=== PATIENT | female | born 1955 ===

== ENCOUNTER 2017-03-22 17:15 | Emergency (ER) | payer MEDICAID ==
[2017-03-22 17:16] VITALS: BMI 24.7
[2017-03-22 17:20] VITALS: O2SAT 99
--- NOTE | 2017-03-22 18:12 | ED PDOC ---
Upper Extremity Pain/Injury Time Seen by Provider: 03/22/17 17:20 Chief Complaint (Nursing): Upper Extremity Problem/Injury Chief Complaint (Provider): Upper extremity injury History Per: Patient History/Exam Limitations: no limitations Onset/Duration Of Symptoms: Hrs (patient fell earlier today, a few hours prior to arrival) Current Symptoms Are (Timing): Still Present Severity: Moderate Additional Complaint(s): 61 year old female with a pertinent medical history of asthma, insomnia, hypercholesterolemia, anxiety, and chronic back pain presents to the ED with complaints of right shoulder and right elbow pain status post fall that occurred earlier today (a few hours prior to arrival). She states that she was mopping the floor in her home and she slipped and fell. She denies having any other medical complaints or injuries at this time. PMD: Lexus Vang MD Past Medical History Reviewed: Historical Data, Nursing Documentation, Vital Signs Vital Signs: Last Vital Signs Temp 98.1 F 03/22/17 17:18 Pulse 105 H 03/22/17 17:18 Resp 18 03/22/17 17:18 BP 114/79 03/22/17 17:18 Pulse Ox 99 03/22/17 17:18 - Medical History PMH: Anxiety, Arthritis, Asthma, Back Problems, Bronchitis, COPD, Depression, Hypercholesterolemia, Hyperlipidemia, Migraine Denies: CHF, HIV, HTN, Hypothyroidism, Osteoporosis, Chronic Kidney Disease, Rheumatoid Arthritis - Surgical History Surgical History: Cholecystectomy - Family History Family History: States: Unknown Family Hx - Social History Current smoker - smoking cessation education provided: No Alcohol: None Drugs: Denies - Home Medications Home Medications: Ambulatory Orders Medication Instructions Recorded Albuterol 0.083% [Albuterol 0.083% 3 ml IH Q4H PRN 09/24/16 Inhal Jina (2.5 mg/3 ml) UD] Albuterol HFA [Ventolin HFA 90 1 puff IH Q6H PRN 09/24/16 mcg/actuation (8 g)] Alprazolam [Xanax] 2 mg PO HS 09/24/16 Desvenlafaxine Succinate [Pristiq] 100 mg PO HS 09/24/16 Diclofenac Sodium [Voltaren] 1 appl TOP BID PRN 09/24/16 Ergocalciferol (Vitamin D2) 50,000 unit PO QWK 09/24/16 [Vitamin D2] Folic Acid/Multivit-Min/Lutein 1 tab PO DAILY 09/24/16 [Multi-Vitamin Gummies] Gabapentin [Neurontin] 800 mg PO Q8H 09/24/16 Meclizine [Meclizine*] 25 mg PO Q8H PRN 09/24/16 Meloxicam [Mobic] 7.5 mg PO DAILY 09/24/16 Mirtazapine [Remeron] 45 mg PO HS 09/24/16 Montelukast [Singulair] 10 mg PO DAILY 09/24/16 Ranitidine HCl [Zantac] 150 mg PO DAILY 09/24/16 Simvastatin [Zocor] 40 mg PO HS 09/24/16 Zolpidem [Ambien] 10 mg PO HS 09/24/16 oxyCODONE [oxyCODONE Immediate 15 mg PO Q4H PRN 09/24/16 Release Tab] Albuterol/Ipratropium [Duoneb 3 3 ml INH RQ6 #10 neb 09/30/16 mg/0.5 mg (3 ml) UD] Azithromycin [Zithromax] 500 mg IV DAILY #5 vial 09/30/16 Fluticasone/Salmeterol 250/50 1 puff IH Q12 #1 puff 09/30/16 [Advair Diskus 250/50] methylPREDNISolone [Solu-Medrol] 40 mg IV Q8 #10 ml 09/30/16 Naproxen [Naprosyn Tab] 375 mg PO Q8 PRN #15 tab 03/22/17 - Allergies Allergies/Adverse Reactions: Allergies Allergy/AdvReac Type Severity Reaction Status Date / Time theophylline Allergy RASH Verified 05/17/16 18:51 peanut butter Allergy RASH Uncoded 10/01/16 10:12 Review of Systems Musculoskeletal: Positive for: Shoulder Pain (right shoulder), Arm Pain (right upper arm pain) Physical Exam - Reviewed Nursing Documentation Reviewed: Yes Vital Signs Reviewed: Yes - Physical Exam Appears: Positive for: Well, Non-toxic, No Acute Distress Head Exam: Positive for: ATRAUMATIC, NORMOCEPHALIC Skin: Positive for: Normal Color, Warm, Dry Cardiovascular/Chest: Positive for: Regular Rate, Rhythm Respiratory: Positive for: Normal Breath Sounds. Negative for: Respiratory Distress Extremity: Positive for: Tenderness (left arm: AC joint tenderness. slip scapular tenderness. tenderness along elbow near olecranon. able to flex and extend. no ecchymosis noted on arm.). Negative for: Normal ROM (limited range of motion in right shoulder due to pain. ), Swelling Neurologic/Psych: Positive for: Alert, Oriented (3x) - ECG O2 Sat by Pulse Oximetry: 99 (RA) Pulse Ox Interpretation: Normal - Progress ED Course And Treament: shoulder xry: no acute fx elbow xry: no acute fx Placed in shoulder sling. toradol 30 mg IM x 1 dose Medical Decision Making Medical Decision Makin:20 Initial impression: 61 year old female with right shoulder and right upper arm pain status post fall. Initial plan: * XRay shoulder right 3 views * XRay elbow right 3 views * reevaluation Scribe Attestation: Documented by Anna Colbert, acting as a scribe for Maxx Roth PA-C. Provider Scribe Attestation: All medical record entries made by the Scribe were at my direction and personally dictated by me. I have reviewed the chart and agree that the record accurately reflects my personal performance of the history, physical exam, medical decision making, and the department course for this patient. I have also personally directed, reviewed, and agree with the discharge instructions and disposition. Disposition - Clinical Impression Clinical Impression: Shoulder injury - Disposition Referrals: Luiz Oneil III, MD [Staff Provider] - Disposition: Routine/Home Disposition Time: 18:50 Condition: FAIR Prescriptions: Naproxen [Naprosyn Tab] 375 mg PO Q8 PRN #15 tab PRN Reason: Pain, Moderate (4-7) Instructions: Shoulder Sprain (ED)
[2017-03-22 19:45] VITALS: BP 130/73; PULSE 82; RESP 15; TEMP 98
--- NOTE | 2017-03-23 10:56 | RAD ---
PROCEDURE: Radiographs of the right elbow. HISTORY: elbow injury COMPARISON: No prior. FINDINGS: BONES: Normal. No fracture. JOINTS: Normal. No osteoarthritis. SOFT TISSUES: Normal. JOINT EFFUSION: None. OTHER FINDINGS: None. IMPRESSION: Unremarkable radiographs of the right elbow.
--- NOTE | 2017-03-23 10:56 | RAD ---
PROCEDURE: Radiographs of the Right Shoulder HISTORY: shoulder injury COMPARISON: No prior. FINDINGS: BONES: No acute fracture. JOINTS: Preserved glenohumeral relationship, acromioclavicular degenerative change: Mild. SOFT TISSUES: Normal. OTHER FINDINGS: None. IMPRESSION: No acute findings related to/accounting for the clinical presentation.
== END 2017-03-22 19:45 | disposition home or self-care (01) ==
LOC: H.ER 17:15
DX: S49.91XA Unspecified injury of right shoulder and upper arm, initial encounter (principal); W19.XXXA Unspecified fall, initial encounter; Y92.000 Kitchen of unspecified non-institutional (private) residence as the place of occurrence of the external cause; E78.00 Pure hypercholesterolemia, unspecified; F41.9 Anxiety disorder, unspecified; J44.9 Chronic obstructive pulmonary disease, unspecified

== ENCOUNTER 2017-03-25 09:03 | Day surgery (SDC) | payer MEDICAID ==
[2017-03-25 09:28] VITALS: BMI 21.9
[2017-03-25] MEDS ORDERED: Lactated Ringer's 1,000 ML IV ONE ×2 (10:05→11:01)
[2017-03-25] MEDS ORDERED: methylPREDNISolone Depo 80 mg/ml Inj ONE (10:19)
[2017-03-25] MEDS ORDERED: Bupivacaine HCl 0.25% PF (30 ml) Inj ONE ×2 (10:19→10:23)
[2017-03-25] MEDS ORDERED: MethylPREDNISolone Depo 40 mg/ml Inj ONE (10:19)
[2017-03-25] MEDS ORDERED: Lidocaine 1% Inj (20ml) ONE (10:20)
[2017-03-25] MEDS ORDERED: Iohexol 300 100 ML IJ ONE (10:20)
[2017-03-25] MEDS ORDERED: Propofol 10 mg/ml Inj (20 ML) ONE (10:34)
[2017-03-25] MEDS ORDERED: Lidocaine 1% Inj (20ml) IM ONE (10:45)
[2017-03-25] MEDS ORDERED: Bupivacaine 0.25% Inj(30mL) IJ ONE (10:46)
[2017-03-25] MEDS ORDERED: methylPREDNISolone Depo 80 mg/ml Inj IM ONE (10:52)
[2017-03-25] MEDS ORDERED: MethylPREDNISolone Depo 40 mg/ml Inj IM ONE (10:54)
[2017-03-25] MEDS ORDERED: HYDROmorphone 0.5 mg/0.5 ml ISec ONE (11:15)
[2017-03-25] MEDS: HYDROmorphone 0.5 mg/0.5 ml ISec IVP PRN ×2 (11:15→11:23)
[2017-03-25 12:49] VITALS: BP 132/79; PULSE 100; RESP 20; TEMP 98
[2017-03-25 12:51] VITALS: O2SAT 99
--- NOTE | 2017-03-25 13:16 | PCM.OP ---
Operative Report - Operative Report Date of Surgery/Procedure: 03/25/17 Time of Surgery/Procedure: 10:45 Surgeon: Deshawn Anesthesia/Sedation: Monitored anesthesia care Pre-Operative Diagnosis: Lumbar spondylosis and left greater trochanteric bursitis Post-Operative Diagnosis: Same Indication for Surgery: Intractable pain Operative Findings: After discussion of the procedure with the patient including his wrist is alternative completed on possibility of an L5 increased pain patient consented to the procedure. She denies any recent infections bleeding tendencies or being on anticoagulants physician was then made to proceed to the OR. Patient was placed somewhat fluoroscopy table in the prone position. With 2 pillows underneath her abdomen. The back was prepped and draped in the usual sterile fashion and sterile technique was adhered to drainage procedure. The L4 and L5 vertebral levels were first identified in the anteroposterior view. CSF or angle on the fluoroscopy was used to open up the intralaminar space at this level. The skin overlying this area was infiltrated with 1% lidocaine using 25-gauge needle. Subsequently a 20-gauge 3-1/2 inch Tuohy needle was incrementally advanced under fluoroscopic guidance until the associated resistance and was rechecked approximately the 7 cm depth. This was guided under lateral fluoroscopy fluoroscopy view. After epidural space was reached this was confirmed by injecting approximately 1 mL of Isovue contrast approximately 4 mL of 1% Marcaine and Depo-Medrol mixture was injected. The needle was then removed. Then the left greater trochanter and trochanter was visualized on the fluoroscopy using the anteroposterior view. This point was also palpated on the skin at this area was infiltrated with 1% lidocaine using 25-gauge needle. Subsequently a 22-gauge 3-1/2 inch spinal needle was incrementally advanced under fluoroscopic guidance until tip of the needle was visualized to contact the greater trochanter at this level. After appropriate placement approximately 6 mL of a quarter percent Marcaine and Depo-Medrol measure was injected. The needle was then removed patient's back and left leg wasn't clean and dry bandages were applied. Pressures and transferred to recovery area in good condition is without any signs of EMPLOYEE TRAINING SPECIALIST toxicity any neurological deficit. Shortly following office in approximately 4 weeks. End of dictation Procedure/Operation Description: L4-5 interlaminar epidural steroid injection. Left greater tronchanteric bursa injection under fluoroscopy Estimated Blood Loss: None. Complications: None. Discharge & Condition: Stable to home.
== END 2017-03-25 13:30 | disposition home or self-care (01) ==
LOC: H.OPSURG 09:03
PROVIDERS: ATTEND Anesthesiology
DX: M47.816 Spondylosis without myelopathy or radiculopathy, lumbar region (principal); J45.909 Unspecified asthma, uncomplicated; Z88.8 Allergy status to other drugs, medicaments and biological substances; M71.58 Other bursitis, not elsewhere classified, other site

== ENCOUNTER 2018-03-09 14:32 | Emergency (ER) | payer MEDICAID ==
[2018-03-09 14:33] VITALS: BMI 21.7
[2018-03-09 14:53] VITALS: O2SAT 100
[2018-03-09] MEDS ORDERED: Albuterol-Ipratrop 3 mg / 0.5 (3 ml) UD INH STA (15:45)
[2018-03-09] MEDS ORDERED: Sodium Chloride 0.9% 1,000 ML IV STA (15:45)
[2018-03-09] MEDS ORDERED: Albuterol-Ipratrop 3 mg / 0.5 (3 ml) UD ONE (15:53)
[2018-03-09] MEDS: Albuterol-Ipratrop 3 mg / 0.5 (3 ml) UD IH STA (15:58)
--- NOTE | 2018-03-09 16:23 | ED PDOC ---
HPI: SOB/CHF/COPD Chief Complaint (Provider): SOB/Cough/Dizziness History Per: Patient History/Exam Limitations: no limitations Current Symptoms Are (Timing): Still Present <Anna Mercado - Last Filed: 03/09/18 18:18> <Juan Salazar - Last Filed: 03/09/18 22:40> Chief Complaint (Nursing): Dizziness/Lightheaded Additional Complaint(s): 62 y/o female with MHx of Asthma, COPD, Pulmonary fibrosis, Hypercholesterolemia , Vertigo, chronic headaches presents to Ed complaining of SOB, intermittent wheezing, non productive cough, chest tightness sensation since yesterday, and has not been getting better after using her Home albuterol. Reports nasal congestion since last week. Denies fevers, chills, abd pain, diarrheas. Also complaining of bilateral headaches, and dizziness episode since yesterday, states it feels like an episode of her chronic headaches, and vertigo, and this is not the worst headache of her life. Denies tingling, numbness, or weakness. (Anna Mercado) Supervising Attending Note <Anna Mercado - Last Filed: 03/09/18 18:18> - Supervising Attending Note The Documented history was done by the: Physician Broadcast Producer The documented physical exam was done by the: Physician Broadcast Producer The documented procedures were done by the: Physician Broadcast Producer - Attestation: I have personally seen and examined this patient.: Yes I have fully participated in the care of the patient.: Yes I have reviewed all pertinent clinical information, including history, physical exam and plan: Yes <Juan Salazra - Last Filed: 03/09/18 22:40> - Notes: Notes:: cough, wheezes. headache and room spinning like her usual vertigo. not worst pain in her life. mild ache. (Juan Salazar) Past Medical History - Medical History PMH: Anxiety, Arthritis (Back pain), Asthma, Back Problems, Bronchitis, COPD, Depression, Hypercholesterolemia, Hyperlipidemia, Migraine Denies: CHF, HIV, HTN, Hypothyroidism, Osteoporosis, Chronic Kidney Disease, Rheumatoid Arthritis - Surgical History Surgical History: Cholecystectomy - Family History Family History: States: Unknown Family Hx, CAD - Social History Current smoker - smoking cessation education provided: No Ex-Smoker (has not smoked in the last 12 months): No Alcohol: None Drugs: Denies <Anna Mercado - Last Filed: 03/09/18 18:18> <Juan Salazar - Last Filed: 03/09/18 22:40> Vital Signs: Last Vital Signs Temp 98.2 F 03/09/18 18:23 Pulse 80 03/09/18 18:23 Resp 18 03/09/18 18:23 BP 132/56 L 03/09/18 18:23 Pulse Ox 100 03/09/18 18:23 - Home Medications Home Medications: Ambulatory Orders Medication Instructions Recorded Albuterol 0.083% [Albuterol 0.083% 3 ml IH Q4H PRN 09/24/16 Inhal Jina (2.5 mg/3 ml) UD] Albuterol HFA [Ventolin HFA 90 1 puff IH Q6H PRN 09/24/16 mcg/actuation (8 g)] Alprazolam [Xanax] 2 mg PO HS 09/24/16 Desvenlafaxine Succinate [Pristiq] 100 mg PO HS 09/24/16 Diclofenac Sodium [Voltaren] 1 appl TOP BID PRN 09/24/16 Ergocalciferol (Vitamin D2) 50,000 unit PO QWK 09/24/16 [Vitamin D2] Folic Acid/Multivit-Min/Lutein 1 tab PO DAILY 09/24/16 [Multi-Vitamin Gummies] Gabapentin [Neurontin] 800 mg PO Q8H 09/24/16 Meclizine [Meclizine*] 25 mg PO Q8H PRN 09/24/16 Mirtazapine [Remeron] 45 mg PO HS 09/24/16 Montelukast [Singulair] 10 mg PO DAILY 09/24/16 Ranitidine HCl [Zantac] 150 mg PO DAILY 09/24/16 Simvastatin [Zocor] 40 mg PO HS 09/24/16 Zolpidem [Ambien] 10 mg PO HS 09/24/16 oxyCODONE [oxyCODONE Immediate 15 mg PO Q4H PRN 09/24/16 Release Tab] Albuterol/Ipratropium [Duoneb 3 3 ml INH RQ6 #10 neb 09/30/16 mg/0.5 mg (3 ml) UD] Fluticasone/Salmeterol 250/50 1 puff IH Q12 #1 puff 09/30/16 [Advair Diskus 250/50] Naproxen [Naprosyn Tab] 375 mg PO Q8 PRN #15 tab 03/22/17 Albuterol Sulfate [Proair Hfa] 0.09 mg IH Q6H PRN #2 inh 03/09/18 Benzonatate [Tessalon Perles] 100 mg PO BID PRN 5 Days sgl 03/09/18 Ibuprofen [Motrin] 600 mg PO TID 7 Days tab 03/09/18 predniSONE [predniSONE Tab] 20 mg PO BID 5 Days tab 03/09/18 - Allergies Allergies/Adverse Reactions: Allergies Allergy/AdvReac Type Severity Reaction Status Date / Time theophylline Allergy RASH Verified 03/09/18 14:51 peanut butter Allergy RASH Uncoded 03/09/18 14:51 Curb-65 Severity Score - CURB-65 Severity Score Confusion: No Bun >19mg/dl (>7mmol/L): No Respiratory Rate greater than/equal to 30: No Systolic BP <90 or Diastolic BP less than/equal 60mmHg: No Age >64: No Curb-65 Score: 0 Percentage 30-day mortality: 0.6% <Anna Mercado - Last Filed: 03/09/18 18:18> Wells Criteria for PE - Wells Criteria for Pulmonary Embolism Clinical Signs and Symptoms of DVT: No P.E is #1 Diagnosis, or Equally Likely: No Heart Rate >100: No Immobilization at least 3 days;Surgery previous 4 weeks: No Previous, objectively diagnosed PE or DVT: No Hemoptysis: No Malignancy w/treatment within 6 months, or palliative: No Total Score: 0 <Anna Mercado - Last Filed: 03/09/18 18:18> Review of Systems ROS Statement: Except As Marked, All Systems Reviewed And Found Negative (as per HPI) <Anna Mercado - Last Filed: 03/09/18 18:18> Physical Exam - Reviewed Nursing Documentation Reviewed: Yes Vital Signs Reviewed: Yes - Physical Exam Appears: Positive for: Non-toxic, No Acute Distress Skin: Positive for: Normal Color, Warm, Dry. Negative for: Diaphoresis, Pallor , Rash, Jaundice, Mottled, Cyanosis Eye Exam: Positive for: Normal appearance ENT: Positive for: Normal ENT Inspection, Nasal Congestion. Negative for: Sinus Pain/Drainage, Pharyngeal Erythema, Tonsillar Exudate Neck: Positive for: Normal, Supple Cardiovascular/Chest: Positive for: Regular Rate, Rhythm. Negative for: Chest Non Tender, Edema, Gallop, Bradycardia, Tachycardia Respiratory: Positive for: Decreased Breath Sounds. Negative for: Accessory Muscle Use, Crackles, Rales, Rhonchi, Wheezing, Respiratory Distress Gastrointestinal/Abdominal: Positive for: Bowel Sounds (present ), Soft. Negative for: Tenderness, Distended, Guarding, Rebound Back: Positive for: Normal Inspection. Negative for: L CVA Tenderness, R CVA Tenderness Extremity: Positive for: Capillary Refill (<2). Negative for: Pedal Edema, Calf Tenderness Neurologic/Psych: Positive for: Alert, gas appliance adjuster II-XII (preserved, and grossly normal ), Oriented (x 3), Gait (normal). Negative for: Motor/Sensory Deficits, Aphasia , Facial Droop <Anna Mercado - Last Filed: 03/09/18 18:18> - Physical Exam Neck: Positive for: Normal, Supple Cardiovascular/Chest: Positive for: Regular Rate, Rhythm Respiratory: Positive for: Decreased Breath Sounds Neurologic/Psych: Positive for: Alert, gas appliance adjuster II-XII, Oriented <Juan Salazar M - Last Filed: 03/09/18 22:40> - Laboratory Results Result Diagrams: 03/09/18 16:39 03/09/18 16:39 - ECG O2 Sat by Pulse Oximetry: 100 <Anna Mercado - Last Filed: 03/09/18 18:18> - Laboratory Results Result Diagrams: 03/09/18 16:39 03/09/18 16:39 <Juan Saalzar - Last Filed: 03/09/18 22:40> Medical Decision Making <Anna Mercado - Last Filed: 03/09/18 18:18> <Juan Salazar - Last Filed: 03/09/18 22:40> Medical Decision Making: Short of Breath -asthma vs COPD exacerbation -Duoneb x 2 -Solumedrol 125 mg IV once -peak flow pre and post treatment -check CBC, BMP, pro-BNP, toponin I -re-evaluation Headaches -Reglan 10 mg IV once Vertigo -Orthosthatic BP negative -no neurological defects in physical exam -Meclizine 25 mg PO once Case discussed with Dr. Salazar Re-evaluation -Patient feels better, her headaches improved significantly after reglan, denies dizziness at this eval. Improved respiratory symptoms. -labs: CBC : normal, CMP:mild low K+, troponin I neg, pro-BNP normal -replaced potassium with Kdur 20 meq PO once -Stable for discharge home on Albuterol and Prednisone for Asthma exacerbation. Recommended f/u with PMD in 2-3 days. ER precautions given. ( Anna Mercado) 2239: Feels much better. AAOx3. Tolerated po. No wheezes or dizziness. Fu with pcp. (Juan Salazar) Disposition - Patient ED Disposition Is Patient to be Admitted: No Discussed With DrAissatou: Juan Salazar - Disposition Disposition: Routine/Home Disposition Time: 18:23 <Anna Mercado - Last Filed: 03/09/18 18:18> - Patient ED Disposition Is Patient to be Admitted: No <Juan Salazar - Last Filed: 03/09/18 22:40> - Clinical Impression Clinical Impression: Asthma exacerbation - Disposition Referrals: [facility] [place] [Outside] - 03/10/18 Condition: IMPROVED Additional Instructions: Return if not better in 3 days. Prescriptions: Albuterol Sulfate [Proair Hfa] 0.09 mg IH Q6H PRN #2 inh PRN Reason: Wheezing Benzonatate [Tessalon Perles] 100 mg PO BID PRN 5 Days sgl PRN Reason: Cough Ibuprofen [Motrin] 600 mg PO TID 7 Days tab predniSONE [predniSONE Tab] 20 mg PO BID 5 Days tab Instructions: Asthma, Adult (DC) Forms: [employer] ([place])
[2018-03-09 17:01] LABS: BASO # 0.1 K/uL (0.0-0.2); EOS # 0.4 K/uL (0.0-0.7); EOS % 5.1 % (0.0-4.0); HEMOGLOBIN 13.1 g/dL (12.0-16.0); LYMPH # 2.1 K/uL (1.0-4.3); LYMPH % 31.1 % (20.0-40.0); MEAN CELL VOLUME 90.4 fl (81.0-99.0); MEAN CORPUSCULAR HEMOGLOBIN 30.9 pg (27.0-31.0); MEAN CORPUSCULAR HGB CONC 34.2 g/dL (33.0-37.0); MEAN PLATELET VOLUME 9.6 fl (7.2-11.7); MONO # 0.4 K/uL (0.0-0.8); MONO % 5.6 % (0.0-10.0); NEUT # 3.9 K/uL (1.8-7.0); NEUT % 57.2 % (50.0-75.0); NRBC % 0.4 % (0.0-0.0); RBC 4.25 Mil/uL (3.80-5.20)
[2018-03-09 17:07] LABS: WHITE BLOOD COUNT 6.9 K/uL (4.8-10.8)
[2018-03-09 17:26] LABS: ALB/GLOB RATIO 1.3 (1.0-2.1); ALBUMIN 3.9 g/dL (3.5-5.0); ALT/SGPT 22 U/L (9-52); AST/SGOT 22 U/L (14-36); BLOOD UREA NITROGEN 11 mg/dl (7-17); CALCIUM 8.9 mg/dL (8.4-10.2); GFR AFRICAN-AMERICAN > 60; GFR NON-AFRICAN AMERICAN 56
[2018-03-09] MEDS ORDERED: Potassium Chloride 20 mEq ER Tab PO STA (18:04)
[2018-03-09] MEDS ORDERED: Potassium Chloride 20 mEq ER Tab PO ONE (18:10)
[2018-03-09 18:26] VITALS: BP 132/56; PULSE 80; RESP 18; TEMP 98.2
--- NOTE | 2018-03-10 09:34 | CARD ---
APPROVED REPORT EKG Measurement Heart [id number] <Conclusion> Normal sinus rhythm Normal ECG
== END 2018-03-09 18:28 | disposition home or self-care (01) ==
LOC: H.ER 14:32
DX: J45.901 Unspecified asthma with (acute) exacerbation (principal); R42 Dizziness and giddiness; E78.00 Pure hypercholesterolemia, unspecified; F32.9 Major depressive disorder, single episode, unspecified; F41.9 Anxiety disorder, unspecified; J84.10 Pulmonary fibrosis, unspecified; J44.9 Chronic obstructive pulmonary disease, unspecified
CPT/HCPCS: 80053; 83880; 84484; 85025; 93005; 94640; 96374; 99285; J2765; J2930; J7030

== ENCOUNTER 2018-04-01 12:06 | Emergency (ER) | payer MEDICAID ==
[2018-04-01 12:13] VITALS: BMI 21.0
[2018-04-01 12:14] VITALS: RESP 18; TEMP 98.4; O2SAT 99
--- NOTE | 2018-04-01 14:12 | ED PDOC ---
Syncope/Near Syncope/Dizziness Chief Complaint (Provider): Dizziness/lightheaded Onset/Duration Of Symptoms: Days (2) Current Symptoms Are (Timing): Still Present Number Of Syncopal Episodes: 2 Activity At Onset Of Symptoms: Standing, Walking Associated Symptoms Preceding Syncopal Episode: Lightheadedness, Vertigo Possible Causative Factor(s): Lightheaded W/Standing Fall Associated With With Symptoms: No Injury As Result Of Fall Severity: Moderate Pain Scale Rating Of: 8 Additional History Per: Patient Additional Complaint(s): PT is a 62 yo f with pmh of vertigo, asthma, COPD, Hyperlipidemia, arthritis, chronic back pain, present today due to dizziness and light headache. Pt state that she is feeling dizzy for the past 2 days, she feel like her head is spinning and it worsen when standing. Pt state that at first she thought its because she was tired, but today in morning she was reaching out to the fridge and she felt dizzy and fall, she denies having a head trauma, or any injury or LoC. PT state that she also have a SOB, and lightheaded with photophobia, its 8 out of 10, on frontal area, and feel like pressure, she tuck 2 Tylenol and it have helped but not resolved. Pt state that she is having tinnitus for the past 2 day on her left ear and some mild hearing deficit on L side . PT state that she was diagnosed with asymptomatic UTI last week and she does not remember the abx shes on. She had 3 episode of diarrhea 3 days ago but it resolved but still have mild abd pain on LLQ. Pt denies fever, N/V, change/blurry vision, worst headache of her life, loss of sensation, tingling, extremity weakness, chest pain, constipation, polyuria, dysuria or any other symptoms. PCP: PMH : as Mentioned above, and sciatica on left Medication: Fluticasone-salmeterol INH , Benadryl, Oxycodon 30mg, Meclizine Surgery: Cholecystectomy Social: never smoked, dont drink, and no drugs Last colonscopy 5 years ago , no abnormalities as per pt <Jasbir Faulkner - Last Filed: 04/01/18 18:40> <Gabriel Pino - Last Filed: 04/05/18 18:11> Time Seen by Provider: 04/01/18 12:50 Chief Complaint (Nursing): Dizziness/Lightheaded Supervising Attending Note - Supervising Attending Note The Documented history was done by the: Physician Pattern Marking Supervisor The documented physical exam was done by the: Physician Pattern Marking Supervisor The documented procedures were done by the: Physician Pattern Marking Supervisor - Attestation: I have personally seen and examined this patient.: Yes I have fully participated in the care of the patient.: Yes <Gabriel Pino Y - Last Filed: 04/05/18 18:11> Past Medical History Vital Signs: Last Vital Signs Temp 98.4 F 04/01/18 12:35 Pulse 82 04/01/18 12:35 Resp 18 04/01/18 12:35 BP 109/62 04/01/18 12:35 Pulse Ox 99 04/01/18 12:35 - Medical History PMH: Anxiety, Arthritis (Back pain), Asthma, Back Problems, Bronchitis, COPD, Depression, Hypercholesterolemia, Hyperlipidemia, Migraine Denies: CHF, HIV, HTN, Hypothyroidism, Osteoporosis, Chronic Kidney Disease, Rheumatoid Arthritis - Surgical History Surgical History: Cholecystectomy - Family History Family History: States: Unknown Family Hx, CAD - Social History Current smoker - smoking cessation education provided: No Ex-Smoker (has not smoked in the last 12 months): No Alcohol: None Drugs: Denies <Jasbir Faulkner - Last Filed: 04/01/18 18:40> Vital Signs: Last Vital Signs Temp 98.4 F 04/01/18 12:35 Pulse 82 04/01/18 12:35 Resp 18 04/01/18 12:35 BP 109/62 04/01/18 12:35 Pulse Ox 99 04/01/18 15:44 <Gabriel Pino Y - Last Filed: 04/05/18 18:11> - Home Medications Home Medications: Ambulatory Orders Medication Instructions Recorded Albuterol 0.083% [Albuterol 0.083% 3 ml IH Q4H PRN 09/24/16 Inhal Jina (2.5 mg/3 ml) UD] Albuterol HFA [Ventolin HFA 90 1 puff IH Q6H PRN 09/24/16 mcg/actuation (8 g)] Alprazolam [Xanax] 2 mg PO HS 09/24/16 Desvenlafaxine Succinate [Pristiq] 100 mg PO HS 09/24/16 Diclofenac Sodium [Voltaren] 1 appl TOP BID PRN 09/24/16 Ergocalciferol (Vitamin D2) 50,000 unit PO QWK 09/24/16 [Vitamin D2] Folic Acid/Multivit-Min/Lutein 1 tab PO DAILY 09/24/16 [Multi-Vitamin Gummies] Gabapentin [Neurontin] 800 mg PO Q8H 09/24/16 Meclizine [Meclizine*] 25 mg PO Q8H PRN 09/24/16 Mirtazapine [Remeron] 45 mg PO HS 09/24/16 Montelukast [Singulair] 10 mg PO DAILY 09/24/16 Ranitidine HCl [Zantac] 150 mg PO DAILY 09/24/16 Simvastatin [Zocor] 40 mg PO HS 09/24/16 Zolpidem [Ambien] 10 mg PO HS 09/24/16 oxyCODONE [oxyCODONE Immediate 15 mg PO Q4H PRN 09/24/16 Release Tab] Albuterol/Ipratropium [Duoneb 3 3 ml INH RQ6 #10 neb 09/30/16 mg/0.5 mg (3 ml) UD] Fluticasone/Salmeterol 250/50 1 puff IH Q12 #1 puff 09/30/16 [Advair Diskus 250/50] Naproxen [Naprosyn Tab] 375 mg PO Q8 PRN #15 tab 03/22/17 Albuterol Sulfate [Proair Hfa] 0.09 mg IH Q6H PRN #2 inh 03/09/18 Benzonatate [Tessalon Perles] 100 mg PO BID PRN 5 Days sgl 03/09/18 Ibuprofen [Motrin] 600 mg PO TID 7 Days tab 03/09/18 predniSONE [predniSONE Tab] 20 mg PO BID 5 Days tab 03/09/18 - Allergies Allergies/Adverse Reactions: Allergies Allergy/AdvReac Type Severity Reaction Status Date / Time theophylline Allergy RASH Verified 03/09/18 14:51 peanut butter Allergy RASH Uncoded 03/09/18 14:51 Review of Systems ROS Statement: Except As Marked, All Systems Reviewed And Found Negative Constitutional: Negative for: Fever Eyes: Negative for: Pain, Vision Change ENT: Positive for: Ear Pain (left ). Negative for: Ear Discharge, Nose Pain, Nose Congestion Cardiovascular: Positive for: Light Headedness. Negative for: Chest Pain, Palpitations Respiratory: Positive for: Shortness of Breath. Negative for: Cough, Wheezing Gastrointestinal: Positive for: Abdominal Pain (LLQ), Diarrhea (3 days ago, not active at moment). Negative for: Nausea, Vomiting Musculoskeletal: Positive for: Back Pain (chronic ) Skin: Negative for: Rash, Bruising Neurological: Positive for: Headache, Dizziness. Negative for: Weakness, Numbness, Confusion, Seizures, Altered Mental Status <Jasbir Faulkner - Last Filed: 04/01/18 18:40> Physical Exam - Reviewed Nursing Documentation Reviewed: Yes Vital Signs Reviewed: Yes - Physical Exam Appears: Positive for: Well, No Acute Distress Head Exam: Positive for: ATRAUMATIC, NORMAL INSPECTION, NORMOCEPHALIC Skin: Positive for: Warm, Dry Eye Exam: Positive for: Normal appearance, PERRL ENT: Positive for: Other (tenderness on L ear, wax obstruct the view of tympanic membrane B/L ) Neck: Positive for: Normal Cardiovascular/Chest: Positive for: Regular Rate, Rhythm. Negative for: Chest Non Tender, Edema Respiratory: Positive for: Normal Breath Sounds Gastrointestinal/Abdominal: Positive for: Bowel Sounds, Soft, Tenderness (LLQ). Negative for: Organomegaly, Distended, Guarding Back: Positive for: L CVA Tenderness. Negative for: R CVA Tenderness Extremity: Positive for: Normal ROM. Negative for: Calf Tenderness, Swelling Neurologic/Psych: Positive for: Alert, commercial drafter II-XII, Oriented, Mood/Affect <Jasbir Faulkner - Last Filed: 04/01/18 18:40> - Laboratory Results Result Diagrams: 04/01/18 14:55 04/01/18 14:55 - ECG O2 Sat by Pulse Oximetry: 99 <Ana Faulknersef - Last Filed: 04/01/18 18:40> - Laboratory Results Result Diagrams: 04/01/18 14:55 04/01/18 14:55 <Gabriel Pino - Last Filed: 04/05/18 18:11> Medical Decision Making Medical Decision Making: TIme 14:39 - Pt is a 62 yo female present today due to dizziness and lightheadedness, with 1 episode of a fall. -Pt is having LLQ pain and diarrhea x3 diagnosed with asymptomatic UTI on ABX On Physical exam LLQ tenderness and CVA Tenderness Plan Abdominal pelvis CT with contrast EKG Ct head w/o contrast Orthostatic BP CBC CMP Orthostatic pressure TIme 16:42 -Pt 62 with Dizziness and lightheadedness -Pt is 62 yo f with LLQ pain and diarrhea x3 diagnosed with asymptomatic UTI on ABx Vitals WNL Orthostatic Pressure: no extreme change in pressure or heart rate on exam ( orthostatic test Negative) Labs are normal Ct head : no acute finding Ct scan: no acute abdominal pelvic pathology nonspecific hypertrophy of dorsal pancreatic vessels as well as mesenteric vein EKG Regular rate and rhythm, No ST changes Pt is laying comfortable and with no acute distress, she tolerate food, she feels better On physical exam pt no focal finding, state she dont feel dizzy but when I put her to walk she was not stable Plan Will add Meclizine 25 mg monitor pt and recheck on her Time 18:32 Pt is a 62 yo female with PMH of vertigo present today due to dizziness and lightheadedness Orthostatic pressure Redone: no extreme change in pressure or HEart rate( orthostatic test negative) Pt recieved meclizine 25mg Pt feel better and comfortable to go home on Physical, Unstable gate is noticed but improved, pt state thats her baseline gate, she normally need to hold on things to be able to walk Plan Pt will be discharged home, advised to follow up with PCP as soon as possible Take Meclizine 25mg Return if any sever headache, worsening symptoms or symptoms persist more than 3 days Continue ABx for the UTI which was prescribed by PCP PT sent home with Information about their Dx <Jasbir Faulkner - Last Filed: 04/01/18 18:40> Medical Decision Making: Note: 62 year old female with a history of vertigo presents with dizziness. CT head is negative, nonfocal neuro exam. Pending CT abd & pelvis, if negative, patient will be cleared for discharge. Time: 18:05 --Patient has an unsteady gait. Time: 18:33 --Gait is stable after Meclizine, patient is medically cleared for discharge home. Scribe Attestation: Documented by Franca Gong, acting as a scribe for Gabriel Pino MD Provider Scribe Attestation: All medical record entries made by the Scribe were at my direction and personally dictated by me. I have reviewed the chart and agree that the record accurately reflects my personal performance of the history, physical exam, medical decision making, and the department course for this patient. I have also personally directed, reviewed, and agree with the discharge instructions and disposition. <Gabriel Pino Y - Last Filed: 04/05/18 18:11> Disposition - Disposition Disposition Time: 18:30 <Jasbir Faulkner - Last Filed: 04/01/18 18:40> <Gabriel Pino - Last Filed: 04/05/18 18:11> - Clinical Impression Clinical Impression: Dizziness - Disposition Condition: IMPROVED Additional Instructions: follow up with your primary doctor Dr Vang in 1-2 days return to the ED with any worsening or concerning symptoms Instructions: Vertigo (a Type of Dizziness) (DC) Forms: [employer] ([place]inian)
[2018-04-01] MEDS ORDERED: Iohexol 240 (50 ml) ONE (14:26)
[2018-04-01] MEDS ORDERED: Iohexol 240 (50 ml) PO ONE (14:30)
[2018-04-01 15:05] LABS: BASO # 0.1 K/uL (0.0-0.2); BASO % 1.2 % (0.0-2.0); EOS # 0.5 K/uL (0.0-0.7); EOS % 8.4 % (0.0-4.0); HEMOGLOBIN 12.5 g/dL (12.0-16.0); LYMPH # 1.7 K/uL (1.0-4.3); LYMPH % 29.6 % (20.0-40.0); MEAN CELL VOLUME 91.2 fl (81.0-99.0); MEAN CORPUSCULAR HEMOGLOBIN 31.5 pg (27.0-31.0); MEAN CORPUSCULAR HGB CONC 34.6 g/dL (33.0-37.0); MEAN PLATELET VOLUME 8.3 fl (7.2-11.7); MONO # 0.4 K/uL (0.0-0.8); MONO % 7.7 % (0.0-10.0); NEUT # 3.1 K/uL (1.8-7.0); NEUT % 53.1 % (50.0-75.0); NRBC % 0.1 % (0.0-0.0); RBC 3.97 Mil/uL (3.80-5.20); RED CELL DISTRIBUTION WIDTH 13.4 % (11.5-14.5); WHITE BLOOD COUNT 5.8 K/uL (4.8-10.8)
--- NOTE | 2018-04-01 15:10 | CT ---
Date of service: 04/01/2018 PROCEDURE: CT HEAD WITHOUT CONTRAST. HISTORY: dizziness COMPARISON: 06/06/2011. TECHNIQUE: Axial computed tomography images were obtained through the head/brain without intravenous contrast. Coronal and sagittal reconstructed images. Radiation dose: Total exam DLP = 775.33 mGy-cm. This CT exam was performed using one or more of the following dose reduction techniques: Automated exposure control, adjustment of the mA and/or kV according to patient size, and/or use of iterative reconstruction technique. FINDINGS: HEMORRHAGE: No intracranial hemorrhage. BRAIN: No mass effect or edema. No atrophy or chronic microvascular ischemic changes. VENTRICLES: Unremarkable. No hydrocephalus. CALVARIUM: Unremarkable. PARANASAL SINUSES: Unremarkable as visualized. No significant inflammatory changes. MASTOID AIR CELLS: Unremarkable as visualized. No inflammatory changes. OTHER FINDINGS: None. IMPRESSION: No acute intracranial abnormalities. No significant findings to account for the clinical presentation. No significant interval change compared to the prior examination(s).
[2018-04-01 15:39] LABS: BLOOD UREA NITROGEN 15 mg/dl (7-17); GFR AFRICAN-AMERICAN > 60; GFR NON-AFRICAN AMERICAN > 60
[2018-04-01 15:40] LABS: ALBUMIN 3.8 g/dL (3.5-5.0); CALCIUM 9.4 mg/dL (8.4-10.2)
[2018-04-01 15:41] LABS: ALB/GLOB RATIO 1.4 (1.0-2.1); ALT/SGPT 30 U/L (9-52); AST/SGOT 28 U/L (14-36)
[2018-04-01] MEDS ORDERED: Sodium Chloride 0.9% 1,000 ML IV STA (16:25)
[2018-04-01] MEDS ORDERED: Iohexol 300 100 ML IJ ONE (16:31)
[2018-04-01] MEDS ORDERED: Sodium Chloride 0.9% 100 ML ONE (16:31)
--- NOTE | 2018-04-01 17:34 | CT ---
Date of service: 04/01/2018 PROCEDURE: CT Abdomen and Pelvis with contrast HISTORY: abd pain diarrhea COMPARISON: None. TECHNIQUE: Contrast dose: 95 mL Omnipaque 300 Radiation dose: Total exam DLP = 216.4 mGy-cm. This CT exam was performed using one or more of the following dose reduction techniques: Automated exposure control, adjustment of the mA and/or kV according to patient size, and/or use of iterative reconstruction technique. FINDINGS: LOWER THORAX: Unremarkable. LIVER: Hepatic steatosis. No gross lesion or ductal dilatation. GALLBLADDER AND BILE DUCTS: Prior cholecystectomy with stable CBD dilatation. PANCREAS: Unremarkable. No gross lesion or ductal dilatation. SPLEEN: Unremarkable. ADRENALS: Unremarkable. No mass. KIDNEYS AND URETERS: Right pelvic kidney. No hydronephrosis. No solid mass. VASCULATURE: Hypertrophied dorsal pancreatic vessels. Hypertrophied mesenteric veins. No aortic aneurysm. BOWEL: Unremarkable. No obstruction. No gross mural thickening. APPENDIX: Normal appendix. PERITONEUM: Unremarkable. No free fluid. No free air. LYMPH NODES: Unremarkable. No enlarged lymph nodes. BLADDER: Unremarkable. REPRODUCTIVE: Left adnexal cyst measuring 2.0 x 1.4 cm. BONES: No acute fracture. Degenerative changes. OTHER FINDINGS: None. IMPRESSION: No acute abdominal pelvic pathology. Nonspecific hypertrophy of dorsal pancreatic vessels as well as mesenteric veins.
[2018-04-01 18:43] VITALS: BP 130/70; PULSE 71
--- NOTE | 2018-04-05 12:02 | CARD ---
APPROVED REPORT Date of service: 04/01/2018 EKG Measurement Heart [id number] <Conclusion> Normal sinus rhythm Normal ECG
== END 2018-04-01 18:50 | disposition home or self-care (01) ==
LOC: H.ER 12:06
DX: R42 Dizziness and giddiness (principal); R10.32 Left lower quadrant pain; M54.32 Sciatica, left side; E78.00 Pure hypercholesterolemia, unspecified; J44.9 Chronic obstructive pulmonary disease, unspecified; N39.0 Urinary tract infection, site not specified
CPT/HCPCS: 70450; 74177; 80053; 85025; 93005; 99285; J7030; Q9966; Q9967

== ENCOUNTER 2018-07-15 09:53 | Emergency (ER) | payer MEDICAID ==
[2018-07-15 10:01] VITALS: BMI 21.2
--- NOTE | 2018-07-15 11:21 | ED PDOC ---
HPI: Skin/Bite Injury Time Seen by Provider: 07/15/18 10:22 Chief Complaint (Nursing): Abnormal Skin Integrity Chief Complaint (Provider): Itchy rash on the neck and left anterior arm since yesterday Current Symptoms Are (Timing): Still Present Quality Of Symptoms: Itching Additional Complaint(s): Itchy rash on the neck and left anterior arm since yesterday. Pt states she gets allergies a lot with rash however states she is only allergic to peanut and not sure what else. Pt did not take anything for itchiness or rash at home. Denies swelling/tingling in the mouth. Pt denies SOB, wheezing, etc. Past Medical History Reviewed: Historical Data, Nursing Documentation, Vital Signs Vital Signs: Last Vital Signs Temp 97.8 F 07/15/18 10:05 Pulse 106 H 07/15/18 10:05 Resp 18 07/15/18 10:05 BP 124/71 07/15/18 10:05 Pulse Ox 97 07/15/18 10:05 - Medical History PMH: Anxiety, Arthritis (Back pain), Asthma, Back Problems, Bronchitis, COPD, Depression, Hypercholesterolemia, Hyperlipidemia, Migraine Denies: CHF, HIV, HTN, Hypothyroidism, Osteoporosis, Chronic Kidney Disease, Rheumatoid Arthritis - Surgical History Surgical History: Cholecystectomy - Family History Family History: States: Unknown Family Hx, CAD - Living Arrangements Living Arrangements: With Family - Social History Current smoker - smoking cessation education provided: No - Home Medications Home Medications: Ambulatory Orders Medication Instructions Recorded Albuterol 0.083% [Albuterol 0.083% 3 ml IH Q4H PRN 09/24/16 Inhal Jina (2.5 mg/3 ml) UD] Albuterol HFA [Ventolin HFA 90 1 puff IH Q6H PRN 09/24/16 mcg/actuation (8 g)] Alprazolam [Xanax] 2 mg PO HS 09/24/16 Desvenlafaxine Succinate [Pristiq] 100 mg PO HS 09/24/16 Diclofenac Sodium [Voltaren] 1 appl TOP BID PRN 09/24/16 Ergocalciferol (Vitamin D2) 50,000 unit PO QWK 09/24/16 [Vitamin D2] Folic Acid/Multivit-Min/Lutein 1 tab PO DAILY 09/24/16 [Multi-Vitamin Gummies] Gabapentin [Neurontin] 800 mg PO Q8H 09/24/16 Meclizine [Meclizine*] 25 mg PO Q8H PRN 09/24/16 Mirtazapine [Remeron] 45 mg PO HS 09/24/16 Montelukast [Singulair] 10 mg PO DAILY 09/24/16 Ranitidine HCl [Zantac] 150 mg PO DAILY 09/24/16 Simvastatin [Zocor] 40 mg PO HS 09/24/16 Zolpidem [Ambien] 10 mg PO HS 09/24/16 oxyCODONE [oxyCODONE Immediate 15 mg PO Q4H PRN 09/24/16 Release Tab] Albuterol/Ipratropium [Duoneb 3 3 ml INH RQ6 #10 neb 09/30/16 mg/0.5 mg (3 ml) UD] Fluticasone/Salmeterol 250/50 1 puff IH Q12 #1 puff 09/30/16 [Advair Diskus 250/50] Naproxen [Naprosyn Tab] 375 mg PO Q8 PRN #15 tab 03/22/17 Albuterol Sulfate [Proair Hfa] 0.09 mg IH Q6H PRN #2 inh 03/09/18 Benzonatate [Tessalon Perles] 100 mg PO BID PRN 5 Days sgl 03/09/18 Ibuprofen [Motrin] 600 mg PO TID 7 Days tab 03/09/18 predniSONE [predniSONE Tab] 20 mg PO BID 5 Days tab 03/09/18 Cyclobenzaprine [Cyclobenzaprine 10 mg PO TID PRN #20 tab 05/28/18 HCl] Ibuprofen [Motrin Tab] 800 mg PO Q8 PRN #20 tab 05/28/18 Lidocaine 5% [Lidoderm] 1 ea TD DAILY #30 patch 05/28/18 predniSONE [predniSONE Tab] 20 mg PO DAILY #12 tab 07/15/18 - Allergies Allergies/Adverse Reactions: Allergies Allergy/AdvReac Type Severity Reaction Status Date / Time theophylline Allergy RASH Verified 03/09/18 14:51 peanut butter Allergy RASH Uncoded 03/09/18 14:51 Review of Systems ROS Statement: Except As Marked, All Systems Reviewed And Found Negative Constitutional: Negative for: Fever, Chills Cardiovascular: Negative for: Chest Pain, Palpitations Respiratory: Negative for: Cough, Shortness of Breath, Wheezing Skin: Positive for: Rash Physical Exam - Reviewed Nursing Documentation Reviewed: Yes Vital Signs Reviewed: Yes - Physical Exam Appears: Positive for: Well, Non-toxic, No Acute Distress Head Exam: Positive for: ATRAUMATIC, NORMAL INSPECTION, NORMOCEPHALIC Skin: Positive for: Normal Color, Warm, DRY Eye Exam: Positive for: Normal appearance ENT: Positive for: Normal ENT Inspection Neck: Positive for: Normal, Painless ROM Cardiovascular/Chest: Positive for: Regular Rate, Rhythm Respiratory: Positive for: Normal Breath Sounds. Negative for: Accessory Muscle Use, Respiratory Distress Back: Positive for: Normal Inspection Extremity: Positive for: Normal ROM. Negative for: Tenderness, Deformity Neurologic/Psych: Positive for: Alert, Oriented - ECG O2 Sat by Pulse Oximetry: 97 Pulse Ox Interpretation: Normal Medical Decision Making Medical Decision Making: IM solumedrol in ER. Pt does not want benadryl at this time because of drowsy side effect. Disposition - Clinical Impression Clinical Impression: Rash - Patient ED Disposition Is Patient to be Admitted: No Counseled Patient/Family Regarding: Diagnosis, Need For Followup - Disposition Referrals: [facility] [Outside] Disposition: Routine/Home Disposition Time: 11:23 Condition: STABLE Prescriptions: predniSONE [predniSONE Tab] 20 mg PO DAILY #12 tab Instructions: Skin Rash (DC)
[2018-07-15 12:18] VITALS: BP 118/74; PULSE 74; RESP 20; TEMP 97; O2SAT 98
== END 2018-07-15 12:18 | disposition home or self-care (01) ==
LOC: H.ER 09:53
DX: R21 Rash and other nonspecific skin eruption (principal)
CPT/HCPCS: 96372; 99282; J2930

== ENCOUNTER 2018-07-22 11:41 | Observation (INO) | payer MEDICAID ==
[2018-07-22 12:07] VITALS: BMI 22.0
[2018-07-22] MEDS ORDERED: Sodium Chloride 0.9% 1,000 ML IV STA (12:08)
[2018-07-22] MEDS ORDERED: Albuterol-Ipratrop 3 mg / 0.5 (3 ml) UD INH STA (12:08)
[2018-07-22] MEDS ORDERED: Albuterol-Ipratrop 3 mg / 0.5 (3 ml) UD ONE (12:21)
[2018-07-22 12:27] LABS: BASO # 0.1 K/uL (0.0-0.2); BASO % 0.7 % (0.0-2.0); EOS # 0.5 K/uL (0.0-0.7); EOS % 6.1 % (0.0-4.0); HEMOGLOBIN 12.2 g/dL (12.0-16.0); LYMPH # 1.3 K/uL (1.0-4.3); LYMPH % 16.3 % (20.0-40.0); MEAN CORPUSCULAR HEMOGLOBIN 30.7 pg (27.0-31.0); MEAN CORPUSCULAR HGB CONC 33.8 g/dL (33.0-37.0); MEAN PLATELET VOLUME 8.1 fl (7.2-11.7); MONO # 0.7 K/uL (0.0-0.8); MONO % 8.2 % (0.0-10.0); NEUT # 5.7 K/uL (1.8-7.0); NEUT % 68.7 % (50.0-75.0); NRBC % 0.1 % (0.0-0.0); RBC 3.97 Mil/uL (3.80-5.20); RED CELL DISTRIBUTION WIDTH 13.3 % (11.5-14.5); WHITE BLOOD COUNT 8.2 K/uL (4.8-10.8)
--- NOTE | 2018-07-22 12:39 | ED PDOC ---
HPI: Chest Pain Time Seen by Provider: 07/22/18 11:51 Chief Complaint (Nursing): Shortness Of Breath Chief Complaint (Provider): Shortness Of Breath History Per: Patient History/Exam Limitations: no limitations Onset/Duration Of Symptoms: Hrs (x 2) Current Symptoms Are (Timing): Still Present Quality: Burning Associated Symptoms: Dyspnea Additional Complaint(s): 62 year old female with a history of asthma and high cholesterol presents to the ED with burning chest pain and shortness of breath for the last 2 hours. Patient reports pain is different from previous asthma symptoms and even hurts when she tries to drink water. Denies cough, congestion, runny nose, recent long distance travel, hormone treatment and leg swelling. PMD: Dr. Lexus Vang Past Medical History Reviewed: Historical Data Vital Signs: Last Vital Signs Temp 98.7 F 07/22/18 12:05 Pulse 100 H 07/22/18 12:05 Resp 20 07/22/18 12:05 BP 144/80 07/22/18 12:05 Pulse Ox 100 07/22/18 12:05 - Medical History PMH: Anxiety, Arthritis (Back pain), Asthma, Back Problems, Bronchitis, COPD, Depression, Hypercholesterolemia, Hyperlipidemia, Migraine Denies: CHF, HIV, HTN, Hypothyroidism, Osteoporosis, Chronic Kidney Disease, Rheumatoid Arthritis - Surgical History Surgical History: Cholecystectomy - Family History Family History: States: Unknown Family Hx, CAD - Home Medications Home Medications: Ambulatory Orders Medication Instructions Recorded Alprazolam [Xanax] 2 mg PO HS 09/24/16 Desvenlafaxine Succinate [Pristiq] 100 mg PO HS 09/24/16 Mirtazapine [Remeron] 45 mg PO HS 09/24/16 Montelukast [Singulair] 10 mg PO DAILY 09/24/16 Simvastatin [Zocor] 40 mg PO HS 09/24/16 Zolpidem [Ambien] 10 mg PO HS 09/24/16 predniSONE [predniSONE Tab] 20 mg PO DAILY #12 tab 07/15/18 Albuterol Sulfate [Proair Hfa] 2 puff IH Q6 PRN 07/22/18 Baclofen [Lioresal] 10 mg PO HS 07/22/18 Benzonatate [Tessalon Perles] 100 mg PO Q8 PRN 07/22/18 DiphenhydrAMINE [Benadryl] 50 mg PO DAILY 07/22/18 Fluticasone/Salmeterol [Airduo 1 puff IH Q12 07/22/18 Respiclick 113-14 Mcg] Meloxicam [Mobic] 15 mg PO DAILY PRN 07/22/18 oxyCODONE [oxyCODONE Immediate 30 mg PO Q8 PRN 07/22/18 Release Tab] - Allergies Allergies/Adverse Reactions: Allergies Allergy/AdvReac Type Severity Reaction Status Date / Time theophylline Allergy RASH Verified 07/22/18 12:05 peanut butter Allergy RASH Uncoded 03/09/18 14:51 Review of Systems ROS Statement: Except As Marked, All Systems Reviewed And Found Negative Cardiovascular: Positive for: Chest Pain (burning sensation). Negative for: Palpitations Respiratory: Positive for: Shortness of Breath. Negative for: Cough Gastrointestinal: Negative for: Nausea, Vomiting Musculoskeletal: Negative for: Leg Pain (swelling) Physical Exam - Reviewed Nursing Documentation Reviewed: Yes Vital Signs Reviewed: Yes - Physical Exam Appears: Positive for: Non-toxic, No Acute Distress Head Exam: Positive for: ATRAUMATIC, NORMAL INSPECTION, NORMOCEPHALIC Skin: Positive for: Normal Color, Warm, Dry Eye Exam: Positive for: EOMI, Normal appearance, PERRL Neck: Positive for: Normal, Painless ROM, Supple Cardiovascular/Chest: Positive for: Regular Rate, Rhythm, Chest Non Tender. Negative for: Murmur Respiratory: Positive for: Normal Breath Sounds. Negative for: Wheezing, Respiratory Distress Gastrointestinal/Abdominal: Positive for: Normal Exam, Soft. Negative for: Tenderness Back: Positive for: Normal Inspection Extremity: Positive for: Normal ROM. Negative for: Tenderness, Deformity Neurologic/Psych: Positive for: Alert, Oriented. Negative for: Motor/Sensory Deficits - Laboratory Results Result Diagrams: 07/22/18 12:23 07/22/18 12:23 Interpretation Of Abn Labs: no acute - ECG ECG: Positive for: Interpreted By Me, Viewed By Me ECG Rhythm: Positive for: Normal QRS, Normal ST Segment, Sinus Rhythm O2 Sat by Pulse Oximetry: 100 (RA) Pulse Ox Interpretation: Normal - Radiology X-Ray: Read By Radiologist X-Ray Interpretation: No Acute Disease - Progress ED Course And Treament: 1434: Stable. AAOx3. Pain free. Considering risk factors will admit tele. Spoke with Dr. Mariscal who will admit tele. Medical Decision Making Medical Decision Makin:06 Impression: burning sensation in chest and shortness of breath Initial Plan: --EKG --BNP --CMP --Lipase --Troponin --CBC --PTT/INR --CXR --Duoneb 3 ml INH --NS IV --Pepcid 20 mg IVP --Peak Flow pre/post Scribe Attestation: Documented by Aspen Toribio acting as a scribe for Juan Salazar MD Provider Scribe Attestation: All medical record entries made by the Scribe were at my direction and personally dictated by me. I have reviewed the chart and agree that the record accurately reflects my personal performance of the history, physical exam, medical decision making, and the department course for this patient. I have also personally directed, reviewed, and agree with the discharge instructions and disposition. Disposition - Clinical Impression Clinical Impression: Chest pain - Patient ED Disposition Is Patient to be Admitted: Yes Counseled Patient/Family Regarding: Studies Performed, Diagnosis - Disposition Disposition Time: 14:35 Condition: FAIR - Pt Status Changed To: Hospital Disposition Of: Observation - POA Present On Arrival: None
[2018-07-22 12:43] LABS: PROTHROMBIN TIME 11.2 Seconds (9.8-13.1)
[2018-07-22 12:45] LABS: PARTIAL THROMBOPLASTIN TIME 29.6 Seconds (25.6-37.1)
[2018-07-22 12:50] LABS: ALB/GLOB RATIO 1.3 (1.0-2.1); ALBUMIN 3.6 g/dL (3.5-5.0); ALT/SGPT 20 U/L (9-52); AST/SGOT 25 U/L (14-36); B-TYPE NATRIURETIC PEPTIDE 65.3 pg/ml (0-900); BLOOD UREA NITROGEN 9 mg/dl (7-17); GFR NON-AFRICAN AMERICAN > 60; LIPASE 14 U/L (23-300)
--- NOTE | 2018-07-22 12:54 | RAD ---
Date of service: 07/22/2018 HISTORY: dyspnea COMPARISON: Chest radiograph dated 01/28/2018. FINDINGS: LUNGS: No active pulmonary disease. PLEURA: No significant pleural effusion identified, no pneumothorax apparent. CARDIOVASCULAR: Aortic atherosclerotic calcifications. Cardiomediastinal silhouette stably prominent. OSSEOUS STRUCTURES: Left humeral head screw redemonstrated. Unchanged. VISUALIZED UPPER ABDOMEN: Right upper quadrant surgical clips. OTHER FINDINGS: None. IMPRESSION: No active disease.
[2018-07-22] MEDS ORDERED: Albuterol HFA 90 mcg/actuation (8 g) IH PRN (15:49)
[2018-07-22] MEDS ORDERED: Benzocaine/Menthol (Cepacol) Lozenge PO PRN (15:54)
[2018-07-22] MEDS ORDERED: Alum-Mag Hydrox-Simethicone Susp (30 mL) PO PRN (15:59)
--- NOTE | 2018-07-22 16:22 | CP.PCM.HP ---
History of Present Illness - History of Present Illness History of Present Illness: 62 y/o F with a PMHx of asthma and HLD presented to ED complaining of chest pain that began last night. Pain is described as burning, starts on chest, radiates to throat, 9/10 yesterday and improved a little this morning. Pt did NOT take any medication. No similar episodes in the past. Pt did not eat this morning. Pt reports throat pain is burning, constant and aggravates by swallowing any cold liquid. Pt reports her daughter who visits her regularly is being treated for a throat infection with antibiotics. PMD: Dr. Lexus Vang Allergies: Theophylline, peanut butter -PMHx: chronic back and joint pain, depression, anxiety, HLD and asthma -PSHx: R rotator cuff repair (2 months ago), L rotator cuff repair, cholecyste ctomy, R knee replacement, B/L breast cyst removal. -SHx: denied tobacco,alcohol or rec drugs. -FHx: NC Present on Admission - Present on Admission Any Indicators Present on Admission: No Review of Systems - Constitutional Constitutional: absent: Anorexia, Chills, Frequent Falls - EENT Eyes: absent: Blurred Vision Nose/Mouth/Throat: Dysphagia, Sore Throat. absent: Nasal Congestion, Nasal Discharge, Sinus Pressure - Cardiovascular Cardiovascular: Chest Pain. absent: Claudication, Diaphoresis, Edema, Leg Edema, Orthopnea - Respiratory Respiratory: absent: Cough, Dyspnea - Gastrointestinal Gastrointestinal: Dysphagia. absent: Abdominal Pain, Bloating, Hematochezia, Nausea, Vomiting - Genitourinary Genitourinary: absent: Dysuria, Urinary Frequency, Urinary Urgency Past Patient History - Infectious Disease Hx of Infectious Diseases: None - Tetanus Immunizations Tetanus Immunization: Unknown - Past Medical History & Family History Past Medical History?: Yes - Past Social History Smoking Status: Never Smoked Alcohol: None Drugs: Denies - CARDIAC Hx Cardiac Disorders: Yes - PULMONARY Hx Respiratory Disorders: Yes - NEUROLOGICAL Hx Migraine: Yes - HEENT Hx HEENT Problems: Yes Other/Comment: WEARS EYE GLASSES - RENAL Hx Chronic Kidney Disease: No - ENDOCRINE/METABOLIC Hx Hypothyroidism: No - HEMATOLOGICAL/ONCOLOGICAL Hx Blood Disorders: Yes - INTEGUMENTARY Hx Dermatological Problems: No - MUSCULOSKELETAL/RHEUMATOLOGICAL Hx Arthritis: Yes (Back pain) Hx Osteoporosis: No Hx Rheumatoid Arthritis: No - GASTROINTESTINAL Hx Gastrointestinal Disorders: No - GENITOURINARY/GYNECOLOGICAL Hx Genitourinary Disorders: No - PSYCHIATRIC Hx Anxiety: Yes Hx Depression: Yes - SURGICAL HISTORY Hx Cholecystectomy: Yes - ANESTHESIA Hx Anesthesia: Yes Hx Anesthesia Reactions: No Hx Malignant Hyperthermia: No Meds Allergies/Adverse Reactions: Allergies Allergy/AdvReac Type Severity Reaction Status Date / Time theophylline Allergy RASH Verified 07/22/18 12:05 peanut butter Allergy RASH Uncoded 03/09/18 14:51 Physical Exam - Constitutional Appears: No Acute Distress - Head Exam Head Exam: ATRAUMATIC, NORMAL INSPECTION - Eye Exam Eye Exam: EOMI, Normal appearance - ENT Exam ENT Exam: Mucous Membranes Moist Additional comments: Posterior oropharynx: presence of remarkable erythema. no exudates and no post- nasal drip. - Neck Exam Neck exam: Positive for: Full Rom. Negative for: Lymphadenopathy, Meningismus - Respiratory Exam Respiratory Exam: NORMAL BREATHING PATTERN. absent: Rales, Rhonchi, Wheezes - Cardiovascular Exam Cardiovascular Exam: REGULAR RHYTHM, +S1, +S2 - GI/Abdominal Exam GI & Abdominal Exam: Soft, Tenderness (mildly on epigastric.) - Extremities Exam Extremities exam: Positive for: full ROM, normal inspection. Negative for: calf tenderness - Neurological Exam Neurological exam: Alert, Oriented x3 Results - Vital Signs Recent Vital Signs: Last Vital Signs Temp 98.2 F 07/22/18 15:32 Pulse 99 H 07/22/18 15:32 Resp 18 07/22/18 15:32 BP 128/83 07/22/18 15:32 Pulse Ox 97 07/22/18 15:32 - Labs Result Diagrams: 07/22/18 12:23 07/22/18 12:23 Labs: Laboratory Results - last 24 hr 07/22/18 07/22/18 07/22/18 12:23 12:23 12:23 WBC 8.2 RBC 3.97 Hgb 12.2 Hct 36.1 MCV 91.0 MCH 30.7 MCHC 33.8 RDW 13.3 Plt Count 269 MPV 8.1 Neut % (Auto) 68.7 Lymph % (Auto) 16.3 L Kingsbury % (Auto) 8.2 Eos % (Auto) 6.1 H Baso % (Auto) 0.7 Neut # (Auto) 5.7 Lymph # (Auto) 1.3 Kingsbury # (Auto) 0.7 Eos # (Auto) 0.5 Baso # (Auto) 0.1 PT 11.2 INR 1.0 APTT 29.6 Sodium 143 Potassium 4.2 Chloride 106 Carbon Dioxide 28 Anion Gap 13 BUN 9 Creatinine 0.7 Est GFR ( Amer) > 60 Est GFR (Non-Af Amer) > 60 Random Glucose 112 H Calcium 9.0 Total Bilirubin 0.2 AST 25 ALT 20 Alkaline Phosphatase 85 Troponin I < 0.0120 NT-Pro-B Natriuret Pep 65.3 Total Protein 6.3 Albumin 3.6 Globulin 2.7 Albumin/Globulin Ratio 1.3 Lipase 14 L Assessment & Plan - Assessment and Plan (Free Text) Assessment: 62 y/o F with a PMHx of HLD and asthma is admitted for evaluation of chest pain and throat pain. Need to r/o ACS. --Troponin neg x1 --CXR with no active disease. PLAN: --Repeat troponin in 8 hours --EKG for tomorrow morning. --Due to concern of gastrointestinal reflux Sx, will order IV Protonix daily and Maalox PRN. --Rapid strep A and culture ordered, as per symptoms, physical exam and ill contact. --Home meds resumed. --Tylenol for pain management. --Continue management as ordered. Discussed with Dr Mariscal, FM attending transportation dispatch manager. - Date & Time Date: 07/22/18 Time: 16:00
[2018-07-22] MEDS ORDERED: Patient's Own Med (Fluticasone/Salmeterol [Airduo Respiclick 113-14 Mcg] 1 PUFF) IH SCH (21:00)
[2018-07-22] MEDS: oxyCODONE 10 mg Immediate Release Tab PO PRN (22:44)
[2018-07-23 00:56] VITALS: RESP 18
[2018-07-23 08:05] VITALS: BP 105/64; PULSE 97; TEMP 97.9; O2SAT 98
[2018-07-23] MEDS ORDERED: Enoxaparin 30 mg Syringe SC SCH (09:00)
[2018-07-23] MEDS: oxyCODONE 10 mg Immediate Release Tab PO PRN (10:08)
--- NOTE | 2018-07-23 13:19 | CARD ---
APPROVED REPORT Date of service: 07/22/2018 EKG Measurement Heart [id number] <Conclusion> Normal sinus rhythm Normal ECG
--- NOTE | 2018-07-23 13:38 | CP.PCM.DIS ---
Provider - Provider Date of Admission: 07/22/18 14:32 Attending physician: Aureliano Mariscal MD Primary care physician: Dr. Lexus Vang Consults: Not needed. Time Spent in preparation of Discharge (in minutes): 30 Diagnosis - Discharge Diagnosis (1) Chest pain Status: Acute Comment: -No cardiac etiology, most probably GI issue. Hospital Course - Lab Results Lab Results: Most Recent Lab Values WBC 8.2 K/uL (4.8-10.8) 07/22/18 12:23 RBC 3.97 Mil/uL (3.80-5.20) 07/22/18 12:23 Hgb 12.2 g/dL (12.0-16.0) 07/22/18 12:23 Hct 36.1 % (34.0-47.0) 07/22/18 12:23 MCV 91.0 fl (81.0-99.0) 07/22/18 12:23 MCH 30.7 pg (27.0-31.0) 07/22/18 12:23 MCHC 33.8 g/dL (33.0-37.0) 07/22/18 12:23 RDW 13.3 % (11.5-14.5) 07/22/18 12:23 Plt Count 269 K/uL (130-400) 07/22/18 12:23 MPV 8.1 fl (7.2-11.7) 07/22/18 12:23 Neut % (Auto) 68.7 % (50.0-75.0) 07/22/18 12:23 Lymph % (Auto) 16.3 % (20.0-40.0) L 07/22/18 12:23 Armstrong % (Auto) 8.2 % (0.0-10.0) 07/22/18 12:23 Eos % (Auto) 6.1 % (0.0-4.0) H 07/22/18 12:23 Baso % (Auto) 0.7 % (0.0-2.0) 07/22/18 12:23 Neut # (Auto) 5.7 K/uL (1.8-7.0) 07/22/18 12:23 Lymph # (Auto) 1.3 K/uL (1.0-4.3) 07/22/18 12:23 Armstrong # (Auto) 0.7 K/uL (0.0-0.8) 07/22/18 12:23 Eos # (Auto) 0.5 K/uL (0.0-0.7) 07/22/18 12:23 Baso # (Auto) 0.1 K/uL (0.0-0.2) 07/22/18 12:23 PT 11.2 Seconds (9.8-13.1) 07/22/18 12:23 INR 1.0 07/22/18 12:23 APTT 29.6 Seconds (25.6-37.1) 07/22/18 12:23 Sodium 143 mmol/l (132-148) 07/22/18 12:23 Potassium 4.2 MMOL/L (3.6-5.0) 07/22/18 12:23 Chloride 106 mmol/L (98-107) 07/22/18 12:23 Carbon Dioxide 28 mmol/L (22-30) 07/22/18 12:23 Anion Gap 13 (10-20) 07/22/18 12:23 BUN 9 mg/dl (7-17) 07/22/18 12:23 Creatinine 0.7 mg/dl (0.7-1.2) 07/22/18 12:23 Est GFR ( Amer) > 60 07/22/18 12:23 Est GFR (Non-Af Amer) > 60 07/22/18 12:23 POC Glucose (mg/dL) 83 mg/dL (65-110) 07/23/18 06:16 Random Glucose 112 mg/dL (65-105) H 07/22/18 12:23 Calcium 9.0 mg/dL (8.4-10.2) 07/22/18 12:23 Total Bilirubin 0.2 mg/dl (0.2-1.3) 07/22/18 12:23 AST 25 U/L (14-36) 07/22/18 12:23 ALT 20 U/L (9-52) 07/22/18 12:23 Alkaline Phosphatase 85 U/L (38-126) 07/22/18 12:23 Troponin I < 0.0120 ng/mL (0.00-0.120) 07/23/18 03:00 NT-Pro-B Natriuret Pep 65.3 pg/ml (0-900) 07/22/18 12:23 Total Protein 6.3 G/DL (6.3-8.2) 07/22/18 12:23 Albumin 3.6 g/dL (3.5-5.0) 07/22/18 12:23 Globulin 2.7 gm/dL (2.2-3.9) 07/22/18 12:23 Albumin/Globulin Ratio 1.3 (1.0-2.1) 07/22/18 12:23 Lipase 14 U/L (23-300) L 07/22/18 12:23 Grp A Beta Strep Ag Negative (NEGATIVE) 07/22/18 17:30 - Hospital Course Hospital Course: 62 y/o F with a PMHx of asthma and HLD presented to ED complaining of chest pain, described as burning, started on chest and radiated to throat. No similar episodes in the past. Bloodwork was negative for troponin, 3x, measured every 8 hours. EKG and chest X-ray were unremarkable. Etiology most possible to be GERD. Pt was reassured on the non-cardiac etiology. Today, pt was seen and examined wi Dr Mariscal by bedside. Pt reported no chest pain or SOB. Pt complained of sore throat that aggravates with cold liquid intake. Pt reports ill contact with daughter who has bacterial pharyngitis. Pt afebrile, tolerating PO, stable, with NO acute events overnight. Will be discharged home with Rx for Amoxicillin and pantoprazole. F/U with PCP within 1 week. - Date & Time of H&P Date of H&P: 07/22/18 Time of H&P: 16:10 Discharge Exam - Additional Findings Additional findings: - Constitutional Appears: No Acute Distress - Head Exam Head Exam: ATRAUMATIC, NORMAL INSPECTION - Eye Exam Eye Exam: EOMI, Normal appearance - ENT Exam ENT Exam: Mucous Membranes Moist Additional comments: Posterior oropharynx: presence of remarkable erythema. no exudates and no post- nasal drip. - Neck Exam Neck exam: Positive for: Full Rom. Negative for: Lymphadenopathy, Meningismus - Respiratory Exam Respiratory Exam: NORMAL BREATHING PATTERN. absent: Rales, Rhonchi, Wheezes - Cardiovascular Exam Cardiovascular Exam: REGULAR RHYTHM, +S1, +S2 - GI/Abdominal Exam GI & Abdominal Exam: Soft, Tenderness (mildly on epigastric.) - Extremities Exam Extremities exam: Positive for: full ROM, normal inspection. Negative for: calf tenderness - Neurological Exam Neurological exam: Alert, Oriented x3 Discharge Plan - Discharge Medications Prescriptions: Amoxicillin [Amoxil 500 mg Cap] 500 mg PO Q12 #14 cap Pantoprazole [Protonix] 40 mg PO DAILY #30 ect - Follow Up Plan Condition: FAIR Disposition: HOME/ ROUTINE Instructions: Chest Pain (DC) Referrals: Lexus Vang MD [Family Provider] -
== END 2018-07-23 12:30 | disposition home or self-care (01) ==
LOC: H.ER 11:41 → H.ERHOLD 14:32 → H.TEL 17:16
PROVIDERS: ADMIT Family Medicine; ATTEND Family Medicine
DX: R07.89 Other chest pain (principal); E78.5 Hyperlipidemia, unspecified; E78.00 Pure hypercholesterolemia, unspecified; J44.9 Chronic obstructive pulmonary disease, unspecified; F41.9 Anxiety disorder, unspecified; Z79.1 Long term (current) use of non-steroidal anti-inflammatories (NSAID); Z96.651 Presence of right artificial knee joint
CPT/HCPCS: 36415; 71045; 80053; 82948; 83690; 83880; 84484; 85025; 85610; 85730; 87070; 87430; 93005; 96374; 99285; C9113; G0378; J1650; J7030

== ENCOUNTER 2018-09-15 11:22 | Emergency (ER) | payer MEDICAID ==
[2018-09-15 11:38] VITALS: BMI 21.9
[2018-09-15 11:39] VITALS: BP 117/76; PULSE 92; RESP 18; TEMP 98; O2SAT 100
[2018-09-15] MEDS ORDERED: DiphenhydrAMINE 50 mg/ml Inj IM STA (12:18)
[2018-09-15] MEDS ORDERED: DiphenhydrAMINE 50 mg/ml Inj ONE (12:27)
--- NOTE | 2018-09-15 12:55 | ED PDOC ---
HPI: Skin/Bite Injury Time Seen by Provider: 09/15/18 12:07 Chief Complaint (Nursing): Abnormal Skin Integrity Chief Complaint (Provider): Abnormal Skin Integrity History Per: Patient History/Exam Limitations: no limitations Onset/Duration Of Symptoms: Days (1x) Current Symptoms Are (Timing): Still Present Quality Of Symptoms: Itching Severity: Moderate Additional Complaint(s): 62 year old female presents to the ED for an evaluation of a rash that started this morning. Patient reports that this morning she developed a pruritic rash to her left temporal area. Patient reports having a history of frequency allergic reactions, but has not tried any new foods recently that may have caused the reaction. Patient denies having headache, visual changes, pain, shortness of breath, chest pain, throat swelling, and fever, chills. PMD: [place] Past Medical History Reviewed: Historical Data, Nursing Documentation, Vital Signs Vital Signs: Last Vital Signs Temp 98 F 09/15/18 11:39 Pulse 92 H 09/15/18 11:39 Resp 18 09/15/18 11:39 BP 117/76 09/15/18 11:39 Pulse Ox 100 09/15/18 11:39 BJ report viewed?: Yes - Medical History PMH: Anxiety, Arthritis (Back pain), Asthma, Back Problems, Bronchitis, COPD, Depression, Hypercholesterolemia, Hyperlipidemia, Migraine Denies: CHF, HIV, HTN, Hypothyroidism, Osteoporosis, Chronic Kidney Disease, Rheumatoid Arthritis - Surgical History Surgical History: Cholecystectomy - Family History Family History: States: CAD - Social History Alcohol: None Drugs: Denies - Home Medications Home Medications: Ambulatory Orders Medication Instructions Recorded Alprazolam [Xanax] 2 mg PO HS 09/24/16 Desvenlafaxine Succinate [Pristiq] 100 mg PO HS 09/24/16 Mirtazapine [Remeron] 45 mg PO HS 09/24/16 Montelukast [Singulair] 10 mg PO DAILY 09/24/16 Simvastatin [Zocor] 40 mg PO HS 09/24/16 Zolpidem [Ambien] 10 mg PO HS 09/24/16 Albuterol Sulfate [Proair Hfa] 2 puff IH Q6 PRN 07/22/18 Baclofen [Lioresal] 10 mg PO HS PRN 07/22/18 Benzonatate [Tessalon Perles] 100 mg PO Q8 PRN 07/22/18 DiphenhydrAMINE [Benadryl] 50 mg PO DAILY PRN 07/22/18 Fluticasone/Salmeterol [Airduo 1 puff IH Q12 07/22/18 Respiclick 113-14 Mcg] Meloxicam [Mobic] 15 mg PO DAILY PRN 07/22/18 Multivitamin/Iron/Folic Acid 1 tab PO DAILY 07/22/18 [Centrum Complete Multivit Tab] oxyCODONE [oxyCODONE Immediate 30 mg PO Q8 PRN 07/22/18 Release Tab] Amoxicillin [Amoxil 500 mg Cap] 500 mg PO Q12 #14 cap 07/23/18 Pantoprazole [Protonix] 40 mg PO DAILY #30 ect 07/23/18 predniSONE [Prednisone] 2 tab PO DAILY #8 tab 09/15/18 - Allergies Allergies/Adverse Reactions: Allergies Allergy/AdvReac Type Severity Reaction Status Date / Time grass pollen Allergy ITCHING Verified 09/15/18 12:12 theophylline Allergy RASH Verified 07/22/18 12:05 peanut butter Allergy RASH Uncoded 03/09/18 14:51 Review of Systems ROS Statement: Except As Marked, All Systems Reviewed And Found Negative Constitutional: Negative for: Fever ENT: Negative for: Throat Swelling Cardiovascular: Negative for: Chest Pain Respiratory: Negative for: Shortness of Breath Skin: Positive for: Rash (left temoral area) Physical Exam - Reviewed Nursing Documentation Reviewed: Yes Vital Signs Reviewed: Yes - Physical Exam Appears: Positive for: Well, Non-toxic, No Acute Distress Head Exam: Positive for: ATRAUMATIC, NORMOCEPHALIC Skin: Positive for: Warm, Dry, Rash (erythematous urticaria on left temporal area, right elbow, left shoulder, and left side of neck without vesicles) ENT: Negative for: Tonsillar Swelling Cardiovascular/Chest: Positive for: Regular Rate, Rhythm Respiratory: Positive for: Normal Breath Sounds (lungs clear to auscultation) Neurologic/Psych: Positive for: Alert, Oriented (3x) - ECG O2 Sat by Pulse Oximetry: 100 (RA) Pulse Ox Interpretation: Normal - Progress ED Course And Treament: On re-evaluation, pt. reports itching has resolved. Rash on temporal area has improed. Medical Decision Making Medical Decision Makin:07 Initial impression: 62 year old female with a rash. Initial plan: -- benadryl 50 mg IM -- prednisone tab 40 mg PO -- reevaluation Scribe Attestation: Documented by Anna Colbert, acting as a scribe for Salo Quinteros Provider Scribe Attestation: All medical record entries made by the Scribe were at my direction and personally dictated by me. I have reviewed the chart and agree that the record accurately reflects my personal performance of the history, physical exam, medical decision making, and the department course for this patient. I have also personally directed, reviewed, and agree with the discharge instructions and disposition. Disposition - Clinical Impression Clinical Impression: Urticaria - Patient ED Disposition Is Patient to be Admitted: No - Disposition Referrals: [facility] [Outside] Disposition: Routine/Home Disposition Time: 12:50 Condition: STABLE Additional Instructions: FOLLOW UP WITH PMD FOR FURTHER EVALUATION RETURN TO ED IMMEDIATELY IF SYMPTOMS WORSEN BRISA CEVALLOS, thank you for letting us take care of you today. Your provider was Bassam Cano MD and you were treated for FACIAL RASH. The emergency medical care you received today was directed at your acute symptoms. If you were prescribed any medication, please fill it and take as directed. It may take several days for your symptoms to resolve. Return to the Emergency Department if your symptoms worsen, do not improve, or if you have any other problems. Please contact your doctor or call one of the physicians/clinics you have been referred to that are listed on the Patient Visit Information form that is included in your discharge packet. Bring any paperwork you were given at discharge with you along with any medications you are taking to your follow up visit. Our treatment cannot replace ongoing medical care by a primary care provider outside of the emergency department. Thank you for allowing the [facility] team to be part of your care today. If you had an X-Ray or CT scan: A Radiologist will review the ED reading if any change in treatment is needed we will contact you. If you had a blood, urine, or wound culture: It will take several days for the results, if any change in treatment is needed we will contact you. If you had an STI test: It will take 48 hours for the results. Please call after 1 week if you have not heard back. Prescriptions: predniSONE [Prednisone] 2 tab PO DAILY #8 tab Instructions: Hives (DC) Forms: [employer] (Sinhala) Print Language: MONEGASQUE
== END 2018-09-15 13:27 | disposition home or self-care (01) ==
LOC: H.ER 11:22
DX: L50.9 Urticaria, unspecified (principal); J44.9 Chronic obstructive pulmonary disease, unspecified; Z86.59 Personal history of other mental and behavioral disorders; Z82.49 Family history of ischemic heart disease and other diseases of the circulatory system
CPT/HCPCS: 96372; 99282; J1200

== ENCOUNTER 2018-12-14 11:48 | Emergency (ER) | payer MEDICAID ==
[2018-12-14 12:08] VITALS: BMI 23.3
[2018-12-14] MEDS ORDERED: Sodium Chloride 0.9% 1,000 ML IV STA (12:25)
--- NOTE | 2018-12-14 13:02 | CT ---
Date of service: 12/14/2018 PROCEDURE: CT HEAD WITHOUT CONTRAST. HISTORY: dizziness headache COMPARISON: 04/01/2018 TECHNIQUE: Axial computed tomography images were obtained through the head/brain without intravenous contrast. Radiation dose: Total exam DLP = 750.75 mGy-cm. This CT exam was performed using one or more of the following dose reduction techniques: Automated exposure control, adjustment of the mA and/or kV according to patient size, and/or use of iterative reconstruction technique. FINDINGS: HEMORRHAGE: No intracranial hemorrhage. BRAIN: No mass effect or edema. Mild periventricular white matter lucency consistent with chronic microvascular ischemic change. No evidence of acute infarct. VENTRICLES: Unremarkable. No hydrocephalus. CALVARIUM: Unremarkable. PARANASAL SINUSES: Unremarkable as visualized. No significant inflammatory changes. MASTOID AIR CELLS: Unremarkable as visualized. No inflammatory changes. OTHER FINDINGS: None. IMPRESSION: No intracranial mass, hemorrhage or evidence of acute infarct. Mild chronic white matter ischemic change.
--- NOTE | 2018-12-14 13:49 | ED PDOC ---
HPI: General Adult Time Seen by Provider: 12/14/18 12:19 Chief Complaint (Nursing): Dizziness/Lightheaded Chief Complaint (Provider): Headache, dizziness History Per: Patient History/Exam Limitations: no limitations Onset/Duration Of Symptoms: Days (3-4) Additional History Per: Patient Additional Complaint(s): 63yo female, with history of migraines, comes to ER reporting headache and dizziness x 3-4 days. Patient describes dizziness as being "off balance"; states even though she has a history of migraines, this is not similar to past. She states the headache is present superiorly and radiates to her neck; no complaints of rash. She also denies any fever, vision changes or speech changes. No additional complaints. PMD: Lexus Vang Past Medical History Reviewed: Historical Data, Nursing Documentation, Vital Signs Vital Signs: Last Vital Signs Temp 98.0 F 12/14/18 12:09 Pulse 99 H 12/14/18 12:09 Resp 18 12/14/18 12:09 BP 138/75 12/14/18 12:09 Pulse Ox 99 12/14/18 12:09 - Medical History PMH: Anxiety, Arthritis (Back pain), Asthma, Back Problems, Bronchitis, COPD, Depression, Hypercholesterolemia, Hyperlipidemia, Migraine Denies: CHF, HIV, HTN, Hypothyroidism, Osteoporosis, Chronic Kidney Disease, Rheumatoid Arthritis - Surgical History Surgical History: Cholecystectomy - Family History Family History: States: Unknown Family Hx, CAD - Home Medications Home Medications: Ambulatory Orders Medication Instructions Recorded Alprazolam [Xanax] 2 mg PO HS 09/24/16 Desvenlafaxine Succinate [Pristiq] 100 mg PO HS 09/24/16 Mirtazapine [Remeron] 45 mg PO HS 09/24/16 Montelukast [Singulair] 10 mg PO DAILY 09/24/16 Simvastatin [Zocor] 40 mg PO HS 09/24/16 Zolpidem [Ambien] 10 mg PO HS 09/24/16 Albuterol Sulfate [Proair Hfa] 2 puff IH Q6 PRN 07/22/18 Baclofen [Lioresal] 10 mg PO HS PRN 07/22/18 Benzonatate [Tessalon Perles] 100 mg PO Q8 PRN 07/22/18 DiphenhydrAMINE [Benadryl] 50 mg PO DAILY PRN 07/22/18 Fluticasone/Salmeterol [Airduo 1 puff IH Q12 07/22/18 Respiclick 113-14 Mcg] Meloxicam [Mobic] 15 mg PO DAILY PRN 07/22/18 Multivitamin/Iron/Folic Acid 1 tab PO DAILY 07/22/18 [Centrum Complete Multivit Tab] oxyCODONE [oxyCODONE Immediate 30 mg PO Q8 PRN 07/22/18 Release Tab] Amoxicillin [Amoxil 500 mg Cap] 500 mg PO Q12 #14 cap 07/23/18 Pantoprazole [Protonix] 40 mg PO DAILY #30 ect 07/23/18 predniSONE [Prednisone] 2 tab PO DAILY #8 tab 09/15/18 Ibuprofen [Motrin Tab] 600 mg PO Q6 PRN #15 tab 12/14/18 - Allergies Allergies/Adverse Reactions: Allergies Allergy/AdvReac Type Severity Reaction Status Date / Time grass pollen Allergy ITCHING Verified 12/14/18 12:25 theophylline Allergy RASH Verified 12/14/18 12:25 peanut butter Allergy RASH Uncoded 12/14/18 12:25 Review of Systems ROS Statement: Except As Marked, All Systems Reviewed And Found Negative Constitutional: Negative for: Fever Eyes: Negative for: Vision Change Gastrointestinal: Negative for: Nausea Neurological: Positive for: Headache, Dizziness. Negative for: Weakness, Numbness, Change in Speech Physical Exam - Reviewed Nursing Documentation Reviewed: Yes Vital Signs Reviewed: Yes - Physical Exam Appears: Positive for: Non-toxic, No Acute Distress Head Exam: Positive for: ATRAUMATIC, NORMAL INSPECTION, NORMOCEPHALIC Skin: Positive for: Normal Color Eye Exam: Positive for: Normal appearance, EOMI, PERRL Neck: Positive for: Normal, Supple Cardiovascular/Chest: Positive for: Regular Rate, Rhythm. Negative for: Tachycardia Respiratory: Positive for: Normal Breath Sounds. Negative for: Respiratory Distress Extremity: Positive for: Normal ROM Neurological/Psych: Positive for: Awake, Alert, Normal Tone, Oriented (x 3), Gait (slight ataxia while attempting to walk heel to toe) - Laboratory Results Result Diagrams: 12/14/18 14:00 12/14/18 13:45 - ECG ECG: Positive for: Interpreted By Me, Viewed By Me ECG Rhythm: Positive for: Normal QRS, Normal ST Segment, Sinus Rhythm. Negative for: ST/T Changes Rate: 95 O2 Sat by Pulse Oximetry: 99 (RA) Pulse Ox Interpretation: Normal Medical Decision Making Medical Decision Makinyo with headache and dizziness -- CT head w/o contrast -- Labs -- EKG -- IV Fluids -- Reglan 10mg IV -- Toradol 15mg IV labs reviewed, unremarkable CT brain report reviewed re-eval at 445p significant improvement, ambulating well re-eval at 530p eating dinner without complaints, wants to go home, mandatory followup PMD/ also given referral outpatient neurology and explained importance of followup. Indications for return discussed. Scribe Attestation: Documented by Verito Harris, acting as a scribe for Thomas Clark DO Provider Scribe Attestation: All medical record entries made by the Scribe were at my direction and personally dictated by me. I have reviewed the chart and agree that the record accurately reflects my personal performance of the history, physical exam, medical decision making, and the department course for this patient. I have also personally directed, reviewed, and agree with the discharge instructions and disposition. Disposition - Clinical Impression Clinical Impression: Headache, Dizziness - Patient ED Disposition Is Patient to be Admitted: No Counseled Patient/Family Regarding: Studies Performed, Diagnosis, Need For Followup, Rx Given - Disposition Referrals: Winston Jauregui MD [Medical Doctor] - Disposition: Routine/Home Disposition Time: 17:15 Condition: STABLE Additional Instructions: Followup with neurology in next week. Return to ER for any return of symptoms, difficulty walking, change in vision, speech or any concern. Prescriptions: Ibuprofen [Motrin Tab] 600 mg PO Q6 PRN #15 tab PRN Reason: Pain, Moderate (4-7) Instructions: Headache, Adult, Dizziness, Nonvertigo, (DC) Forms: [employer] (Scottish)
[2018-12-14 14:11] LABS: BASO % 0.6 % (0.0-2.0); EOS # 0.6 K/uL (0.0-0.7); HEMOGLOBIN 12.5 g/dL (12.0-16.0); LYMPH # 1.4 K/uL (1.0-4.3); LYMPH % 17.2 % (20.0-40.0); MEAN CELL VOLUME 92.5 fl (81.0-99.0); MEAN CORPUSCULAR HEMOGLOBIN 30.9 pg (27.0-31.0); MEAN CORPUSCULAR HGB CONC 33.4 g/dL (33.0-37.0); MEAN PLATELET VOLUME 8.3 fl (7.2-11.7); MONO # 0.7 K/uL (0.0-0.8); MONO % 9.2 % (0.0-10.0); NEUT # 5.4 K/uL (1.8-7.0); NRBC % 0.1 % (0.0-0.0); RBC 4.03 Mil/uL (3.80-5.20); RED CELL DISTRIBUTION WIDTH 13.4 % (11.5-14.5); WHITE BLOOD COUNT 8.1 K/uL (4.8-10.8)
[2018-12-14 14:12] LABS: SQUAMOUS EPITHIAL < 1 /hpf (0-5); URINE BACTERIA RARE (<OCC); URINE BILIRUBIN NEGATIVE (NEGATIVE); URINE BLOOD NEGATIVE (NEGATIVE); URINE CLARITY SLIGHTY-CLOUDY (Clear); URINE COLOR YELLOW (YELLOW); URINE GLUCOSE (UA) NEG (NEGATIVE); URINE LEUKOCYTE ESTERASE MOD Leu/uL (Negative); URINE PROTEIN NEGATIVE (NEGATIVE); URINE UROBILINOGEN 0.2-1.0 mg/dL (0.2-1.0)
[2018-12-14 14:55] LABS: ALB/GLOB RATIO 1.4 (1.0-2.1); ALBUMIN 3.9 g/dL (3.5-5.0); ALT/SGPT 27 U/L (9-52); AST/SGOT 22 U/L (14-36); BLOOD UREA NITROGEN 21 mg/dl (7-17); CALCIUM 9.9 mg/dL (8.4-10.2); GFR NON-AFRICAN AMERICAN > 60
[2018-12-14 17:09] VITALS: TEMP 97.6
[2018-12-14 17:40] VITALS: BP 127/76; RESP 19
--- NOTE | 2018-12-14 20:18 | CARD ---
APPROVED REPORT Date of service: 12/14/2018 EKG Measurement Heart [id number] <Conclusion> Normal sinus rhythm Normal ECG
[2018-12-16 12:39] VITALS: PULSE 95; O2SAT 99
== END 2018-12-14 17:49 | disposition home or self-care (01) ==
LOC: H.ER 11:48
DX: R42 Dizziness and giddiness (principal); R51 Headache; E78.00 Pure hypercholesterolemia, unspecified
CPT/HCPCS: 70450; 80053; 81003; 82948; 83735; 84100; 84484; 85025; 93005; 96374; 96375; 99285; J1885; J2765; J7030

== ENCOUNTER 2019-01-07 12:03 | Emergency (ER) | payer MEDICAID ==
[2019-01-07 12:08] VITALS: BMI 23.2
[2019-01-07 12:09] VITALS: BP 139/76; RESP 18; TEMP 98.4
--- NOTE | 2019-01-07 13:32 | ED PDOC ---
Lower Extremity Pain/Injury Time Seen by Provider: 01/07/19 12:46 Chief Complaint (Nursing): Lower Extremity Problem/Injury Chief Complaint (Provider): Left calf pain History Per: Patient History/Exam Limitations: no limitations Onset/Duration Of Symptoms: Days (x3) Current Symptoms Are (Timing): Still Present Additional Complaint(s): 63 year old female presents to the ED complaining of left calf pain after twisting her left leg while walking x3 days ago. Patient denies falling and states she was fine after and continued walking but the pain began later and has been getting progressively worse. She states she took x2 200mg of Advil at 10:00 today with no relief. Denies recent travel or long car or plane rides. Denies chest pain or SOB, denies other injury. PMD: Lexus aCrias Past Medical History Reviewed: Historical Data, Nursing Documentation, Vital Signs Vital Signs: Last Vital Signs Temp 98.4 F 01/07/19 12:08 Pulse 103 H 01/07/19 12:08 Resp 18 01/07/19 12:08 BP 139/76 01/07/19 12:08 Pulse Ox 99 01/07/19 12:08 - Medical History PMH: Anxiety, Arthritis (Back pain), Asthma, Back Problems, Bronchitis, COPD, Depression, Hypercholesterolemia, Hyperlipidemia, Migraine Denies: CHF, HIV, HTN, Hypothyroidism, Osteoporosis, Chronic Kidney Disease, Rheumatoid Arthritis - Surgical History Surgical History: Cholecystectomy - Family History Family History: States: Unknown Family Hx, CAD - Home Medications Home Medications: Ambulatory Orders Medication Instructions Recorded Alprazolam [Xanax] 2 mg PO HS 09/24/16 Desvenlafaxine Succinate [Pristiq] 100 mg PO HS 09/24/16 Mirtazapine [Remeron] 45 mg PO HS 09/24/16 Montelukast [Singulair] 10 mg PO DAILY 09/24/16 Simvastatin [Zocor] 40 mg PO HS 09/24/16 Zolpidem [Ambien] 10 mg PO HS 09/24/16 Albuterol Sulfate [Proair Hfa] 2 puff IH Q6 PRN 07/22/18 Baclofen [Lioresal] 10 mg PO HS PRN 07/22/18 Benzonatate [Tessalon Perles] 100 mg PO Q8 PRN 07/22/18 DiphenhydrAMINE [Benadryl] 50 mg PO DAILY PRN 07/22/18 Fluticasone/Salmeterol [Airduo 1 puff IH Q12 07/22/18 Respiclick 113-14 Mcg] Meloxicam [Mobic] 15 mg PO DAILY PRN 07/22/18 Multivitamin/Iron/Folic Acid 1 tab PO DAILY 07/22/18 [Centrum Complete Multivit Tab] oxyCODONE [oxyCODONE Immediate 30 mg PO Q8 PRN 07/22/18 Release Tab] Amoxicillin [Amoxil 500 mg Cap] 500 mg PO Q12 #14 cap 07/23/18 Pantoprazole [Protonix] 40 mg PO DAILY #30 ect 07/23/18 predniSONE [Prednisone] 2 tab PO DAILY #8 tab 09/15/18 Ibuprofen [Motrin Tab] 600 mg PO Q6 PRN #15 tab 12/14/18 Cyclobenzaprine [Cyclobenzaprine 10 mg PO TID PRN #12 tab 01/07/19 HCl] Naproxen 500 mg PO BID PRN #20 tab 01/07/19 - Allergies Allergies/Adverse Reactions: Allergies Allergy/AdvReac Type Severity Reaction Status Date / Time grass pollen Allergy ITCHING Verified 12/14/18 12:25 theophylline Allergy RASH Verified 12/14/18 12:25 peanut butter Allergy RASH Uncoded 12/14/18 12:25 Review of Systems ROS Statement: Except As Marked, All Systems Reviewed And Found Negative Musculoskeletal: Positive for: Other (Left calf pain) Physical Exam - Reviewed Nursing Documentation Reviewed: Yes Vital Signs Reviewed: Yes - Physical Exam Comments: GENERAL APPEARANCE: Patient is awake, alert, oriented x 3, in no acute distress. SKIN: Warm, dry; (-) cyanosis. CHEST AND RESPIRATORY: (-) chest wall tenderness. Lungs: (-) rales, (-) rhonchi, (-) wheezes; breath sounds equal bilaterally. HEART AND CARDIOVASCULAR: (-) irregularity; (-) murmur, (-) gallop. LEFT LOWER EXTREMITY: Distal pulses 2+; capillary refill less than 2 seconds. Decreased ROM of knee secondary to pain; (+) diffuse tenderness of posterior and lateral left lower extremity, (-) palpable cords; (-) swelling, (-) varicosities, NVI NEURO AND PSYCH: Mental status as above. - ECG O2 Sat by Pulse Oximetry: 99 (RA) Pulse Ox Interpretation: Normal Medical Decision Making Medical Decision Making: Initial Impression: Left calf pain Initial Plan: --Flexeril 10mg PO --Tylenol 650mg PO --Tibia Fibula X-ray --Duplex Lower Extremity US 14:08 Tibia/fibula X-ray FINDINGS: BONES: Bone alignment and mineralization are normal. There is no acute displaced fracture or bone destruction. JOINT SPACES: Unremarkable. OTHER FINDINGS: None. IMPRESSION: No acute displaced fracture or dislocation. 15:19 US duplex lower extr Date of service: 01/07/2019 HISTORY: Pain. PRIORS: None. FINDINGS: 2-D, color and duplex Doppler analysis of the lower extremity venous circulation using routine protocol from the femoral veins through the popliteal veins. Venous compressibility: Normal. Flow and augmentation patterns: Normal. Visualized veins upper third of calf: Normal. Puga cyst: None. IMPRESSION: No sonographic or Doppler evidence for DVT in left lower extremity. 15:20 on re eval pt has mild improvement, no fracture or DVT, likely muscular strain, will provide jerica wrap, muscle relaxer and naproxen Discussed results, diagnosis, treatment, return precautions and f/u with pt who is understanding, in agreement and stabel for dc Scribe Attestation: Documented by Cornell Gong acting as a scribe for Moisés DE LA CRUZ. Provider Scribe Attestation: All medical record entries made by the Scribe were at my direction and personally dictated by me. I have reviewed the chart and agree that the record accurately reflects my personal performance of the history, physical exam, medical decision making, and the department course for this patient. I have also personally directed, reviewed, and agree with the discharge instructions and disposition. Disposition - Clinical Impression Clinical Impression: Muscle strain, lower leg - Patient ED Disposition Is Patient to be Admitted: No Counseled Patient/Family Regarding: Studies Performed, Diagnosis, Need For Followup, Rx Given - Disposition Referrals: Lexus Vang MD [Medical Doctor] - Shira Cesar MD [Staff Provider] - Disposition: Routine/Home Disposition Time: 15:24 Condition: IMPROVED Additional Instructions: Take medication as prescribed. Rest, ice and elevate your leg. Wear jerica wrap for compression and support. Follow up with your doctor or orthopedist as listed. Thank you for letting us take care of you today. The emergency medical care you received today was directed at your acute symptoms. If you were prescribed any medication, please fill it and take as directed. It may take several days for your symptoms to resolve. Return to the Emergency Department if your symptoms worsen, do not improve, or if you have any other problems. Please contact your doctor in 2 days for re-evaluation and follow up / or call one of the physicians/clinics you have been referred to that are listed on the Patient Visit Information form that is included in your discharge packet. Bring any paperwork you were given at discharge with you along with any medications you are taking to your follow up visit. Our treatment cannot replace ongoing me dical care by a primary care provider (PCP) outside of the emergency department. Prescriptions: Cyclobenzaprine [Cyclobenzaprine HCl] 10 mg PO TID PRN #12 tab PRN Reason: Muscle Spasm Naproxen 500 mg PO BID PRN #20 tab PRN Reason: Pain, Moderate (4-7) Instructions: Muscle Strain (DC), Lower Extremity Muscle Strain Forms: [facility] [place] (Korean) Print Language: JAMAICAN - POA Present On Arrival: None
--- NOTE | 2019-01-07 14:12 | RAD ---
Date of service: 01/07/2019 PROCEDURE: Radiographs of the left tibia and fibula. HISTORY: injury COMPARISON: None available. TECHNIQUE: Frontal and lateral views obtained. 2 views obtained. FINDINGS: BONES: Bone alignment and mineralization are normal. There is no acute displaced fracture or bone destruction. JOINT SPACES: Unremarkable. OTHER FINDINGS: None. IMPRESSION: No acute displaced fracture or dislocation.
--- NOTE | 2019-01-07 15:15 | US ---
Date of service: 01/07/2019 HISTORY: Pain. PRIORS: None. FINDINGS: 2-D, color and duplex Doppler analysis of the lower extremity venous circulation using routine protocol from the femoral veins through the popliteal veins. Venous compressibility: Normal. Flow and augmentation patterns: Normal. Visualized veins upper third of calf: Normal. Puga cyst: None. IMPRESSION: No sonographic or Doppler evidence for DVT in left lower extremity.
[2019-01-07 15:36] VITALS: PULSE 91
[2019-01-07 18:41] VITALS: O2SAT 99
== END 2019-01-07 15:41 | disposition home or self-care (01) ==
LOC: H.ER 12:03
DX: S86.912A Strain of unspecified muscle(s) and tendon(s) at lower leg level, left leg, initial encounter (principal); X50.1XXA Overexertion from prolonged static or awkward postures, initial encounter; Y93.01 Activity, walking, marching and hiking; J44.9 Chronic obstructive pulmonary disease, unspecified; Z82.49 Family history of ischemic heart disease and other diseases of the circulatory system; Z86.59 Personal history of other mental and behavioral disorders